=== PATIENT | female | born 1950 ===

== ENCOUNTER 2016-09-04 02:36 | Inpatient (IN) | payer MEDICARE, OTHER ==
[2016-09-04] MEDS ORDERED: ATORVASTATIN 80 MG TAB PO STA (02:42)
[2016-09-04 02:48] LABS: Glucose,Whole Blood 104 mg/dL (75-99)
[2016-09-04 02:52] LABS: Anisocytosis Moderate; CH 20.7; Hypochromasia Marked; Microcytosis Moderate
[2016-09-04 02:56] LABS: Basophils % (A) 0 %; CHCM 27.4; Eosinophils # (A) 0.2 k/uL (0-0.7); Eosinophils % (A) 3 %; HCT 22.8 % (34.0-46.0); HDW 3.02; Luc # (Auto) 0.23; Luc % (Auto) 3; Lymphocytes # (A) 1.1 k/uL (1.0-4.8); Lymphocytes % (A) 12 %; MCH 21.4 pg (25.0-35.0); MCHC 28.1 g/dL (31.0-37.0); MCV 76.1 fL (80.0-100.0); Mean Platelet Volume 7.8; Monocytes # (A) 0.7 k/uL (0-1.0); Monocytes % (A) 8 %; Neutrophils # (A) 6.7 k/uL (1.3-7.7); Neutrophils % (A) 75 %; RDW 20.6 % (11.5-15.5); WBC 8.9 k/uL (3.8-10.6); WBC (Perox) 9.11
[2016-09-04 02:58] LABS: HGB 6.4 gm/dL (11.4-16.0)
[2016-09-04 03:00] LABS: ALT 33 U/L (9-52); AST 20 U/L (14-36); Alkaline Phosphatase 40 U/L (38-126); Anion Gap 9 mmol/L; Blood Urea Nitrogen 8 mg/dL (7-17); Calcium 8.5 mg/dL (8.4-10.2); Carbon Dioxide 21 mmol/L (22-30); Chloride 109 mmol/L (98-107); Glucose 106 mg/dL (74-99); Non-African American GFR(MDRD) >60 (>60 ml/min/1.73 sqM); Sodium 139 mmol/L (137-145); Total Bilirubin 0.6 mg/dL (0.2-1.3); Total Protein 6.1 g/dL (6.3-8.2)
[2016-09-04] MEDS ORDERED: LIDOCAINE 2% INJ 20 MG/ML (20 ML MDV) ONE (03:00)
--- NOTE | 2016-09-04 03:04 | ED ---
Chest Pain HPI - General Chief Complaint: Chest Pain Stated Complaint: chest pain Time Seen by Provider: 09/04/16 02:36 Source: patient, EMS, RN notes reviewed Mode of arrival: EMS - History of Present Illness Initial Comments: This is a 66-year-old female who has a history of dysfunctional uterine bleeding and anemia who also is a Adventism and does not want any blood transfusions with the onset about one hour and 20 minutes prior to arrival of right-sided neck pain the radiated down into her shoulder and chest. She stated that it was approximately 6/10 severity associated with any nausea vomiting fevers chills or sweats. EMS was called she was noted to have some subtle ST elevation in leads 2 and aVL. She was brought here priority [address] elevation myocardial infarction. Patient did take 2 aspirins at home was given nitroglycerin by paramedics. The pain did improve down to about a 4 and then down to a 3. She has no prior history of heart disease or lung disease she is a former smoker who quit in the early 1980s. There is a family history of heart disease. MD Complaint: chest pain - Related Data Allergies Allergy/AdvReac Type Severity Reaction Status Date / Time metronidazole [From Flagyl] AdvReac Rash/Hives Verified 09/04/16 02:45 Review of Systems ROS Statement: Those systems with pertinent positive or pertinent negative responses have been documented in the HPI. ROS Other: All systems not noted in ROS Statement are negative. EKG Findings - EKG Results: EKG: interpreted by MIMI, sinus rhythm (Sinus rhythm with a rate of 111 IL interval 160 QRS duration 68 daily since QTC of 324/[address] segment in leads 1 and aVL) Past Medical History Additional Past Medical History / Comment(s): Anemia, sleep apnea History of Any Multi-Drug Resistant Organisms: None Reported Past Surgical History: No Surgical Hx Reported Past Psychological History: No Psychological Hx Reported Smoking Status: Former smoker Past Alcohol Use History: Occasional Past Drug Use History: None Reported General Exam - General Exam Comments Initial Comments: This is a well up well-nourished awake alert oriented 3 female General appearance: anxious Head exam: Present: atraumatic, normocephalic, normal inspection Eye exam: Present: normal appearance, PERRL, EOMI. Absent: scleral icterus, conjunctival injection, periorbital swelling ENT exam: Present: normal exam, mucous membranes moist Neck exam: Present: normal inspection. Absent: tenderness, meningismus, lymphadenopathy Respiratory exam: Present: normal lung sounds bilaterally. Absent: respiratory distress, wheezes, rales, rhonchi, stridor Cardiovascular Exam: Present: normal rhythm, tachycardia, normal heart sounds. Absent: systolic murmur, diastolic murmur, rubs, gallop, clicks GI/Abdominal exam: Present: soft, normal bowel sounds. Absent: distended, tenderness, guarding, rebound, rigid Extremities exam: Present: normal inspection, full ROM, normal capillary refill. Absent: tenderness, pedal edema, joint swelling, calf tenderness Back exam: Present: normal inspection Neurological exam: Present: alert, oriented X3, CN II-XII intact Psychiatric exam: Present: normal affect, normal mood Skin exam: Present: warm, dry, intact, normal color. 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 Reevaluation #2: 09/04/16 03:04 I did discuss the initial findings with Dr. Quan prior to the patient's arrival in the emergency department. This is also prior to discover that she was a Jehovah witness and had chronic anemia. Patient did state that she had a 6.1 hemoglobin done on a blood draw done yesterday. Chest Pain MDM - MDM [facility] was activated. Patient did have an x-ray done which showed no definite acute findings. Her latest pain scale was down to about a 1 or 2/10. Taken to the [facility]. Critical Care Time Critical Care Time: Yes Critical Care Time: 37 minutes of critical care time which included monitoring the EMS run and discussed with paramedics prior to arrival review the 12-lead EKG was transmitted. Discussed with paramedics after arrival. History and physical exam of the patient as well as lab orders and x-ray orders. Evaluation of the above. Reevaluation the patient to responsive therapy. Discussion with cardiology. Discussion later with the admitting service. Documentation of the above. Disposition Clinical Impression: ST elevation myocardial infarction (STEMI) Disposition: ADMITTED IP TO THIS HOSP Condition: Serious
[2016-09-04 03:07] LABS: Prothrombin Time 10.6 sec (9.0-12.0)
--- NOTE | 2016-09-04 03:12 | XR ---
EXAM: XR Chest, 1 View. CLINICAL HISTORY: Reason: Pain TECHNIQUE: Frontal view of the chest. COMPARISON: No relevant prior studies available. FINDINGS: Lungs: Unremarkable. No consolidation. Pleural space: Unremarkable. No pneumothorax. Heart: Unremarkable. No cardiomegaly. Mediastinum: Unremarkable. Bones/joints: Unremarkable. IMPRESSION: Normal chest x-ray.
[2016-09-04] MEDS ORDERED: NALOXONE 0.4 MG/ML 1 ML VIAL IV PRN (03:19)
[2016-09-04 03:21] LABS: Creatine Kinase MB 1.6 ng/mL (0.0-2.4)
[2016-09-04 03:25] LABS: Troponin I 0.255 ng/mL (0.000-0.034)
[2016-09-04] MEDS ORDERED: SODIUM CHLORIDE 0.9% 1,000 ML IV SCH (03:30)
[2016-09-04 03:39] LABS: Glucose,Whole Blood 114 mg/dL (75-99)
[2016-09-04] MEDS: MORPHINE SULFATE 2 MG/ML SYRINGE IVP PRN ×5 (04:48→22:26)
[2016-09-04 05:09] VITALS: BMI 35.5
[2016-09-04] MEDS ORDERED: Phosphorus Replacement Protoco 1 EACH MISC MISCELLANE PRN (05:31)
[2016-09-04] MEDS ORDERED: Potassium Replacement Protocol 1 EACH MISC MISCELLANE PRN (05:31)
[2016-09-04] MEDS ORDERED: Magnesium Replacement Protocol 1 EACH MISC MISCELLANE PRN (05:31)
--- NOTE | 2016-09-04 08:44 | CONS ---
DATE OF CONSULTATION: Mrs. Patterson is a 66-year-old female with no prior documented history of coronary artery disease, who presented with symptoms of chest discomfort. The discomfort was acute onset with mild dyspnea with radiation to the neck. Her EKG by EMS showed mild ST segment elevation in lead I and aVL. In view of that, she was brought into the cardiac catheterization laboratory for emergency cardiac catheterization. Patient has been having heavy vaginal bleeding and her hemoglobin on presentation was 6.4. She is a Muslim and refuses any blood product. At the time of my evaluation, her pain has resolved completely. She has no dyspnea. No dizziness. No palpitation. No syncope. She denies any history of coronary artery disease. She is not very active physically because of the anemia and the fatigue. She is worse supposed to be evaluated for possible hysterectomy. She has no history of PND, orthopnea, or peripheral edema. Her coronary risk factors are negative for smoking. She stopped in the . She is nondiabetic, nonhypertensive. REVIEW OF SYSTEMS: RESPIRATORY SYSTEM: She has no recent wheezing. No cough. No history of obstructive lung disease. GI SYSTEM: No recent GI bleeding. No peptic ulcer disease. SYSTEM: She has the heavy vaginal bleeding. NERVOUS SYSTEM: No stroke or seizure. PHYSICAL EXAMINATION: She is a 66-year-old female, alert, in no apparent distress. Heart rate in the one teens. Blood pressure 120/70. HEAD: Normocephalic. EYES: Sclerae anicteric. Conjunctivae are pale. NECK: Good upstroke. No bruit. No jugular venous distention. LUNGS: Clear to auscultation. HEART: Regular rate and rhythm. S1, S2, no S3, no rub. ABDOMEN: Soft, nontender, positive bowel sounds. No organomegaly. EXTREMITIES: No edema. Intact distal pulses. Lab data revealed EKG sinus mechanism, rate of [address] segment elevation and I and aVL with T wave inversion in 3 and aVF. Her hemoglobin is 6.4. IMPRESSION: 1. Probable acute ST segment elevation myocardial infarction in the lateral leads, could be diagonal branch territory. 2. Severe anemia with active vaginal bleeding. 3. Muslim, patient declined any blood product. RECOMMENDATION: In view of the severe anemia, the patient is not a candidate for any cardiac catheterization because of the risk of further bleeding and exacerbating factor especially that the risk of bleeding will be exacerbated by the anticoagulation. I have discussed those findings with the patient. Will treat her medically. Obtain echocardiogram with Doppler. Depending on her progress, further recommendation will be made. Thank you for this consult. We will follow with you.
[2016-09-04] MEDS: PANTOPRAZOLE 40 MG TABLET PO SCH (09:05)
[2016-09-04] MEDS: LISINOPRIL 2.5 MG TAB PO SCH ×2 (09:05→20:16)
[2016-09-04] MEDS: ATORVASTATIN 80 MG TAB PO SCH (09:06)
[2016-09-04] MEDS: ASPIRIN 81 MG CHEW PO SCH (09:06)
[2016-09-04] MEDS: METOPROLOL TARTRATE 25 MG TAB PO SCH ×2 (09:07→20:16)
[2016-09-04 09:34] LABS: Magnesium 1.9 mg/dL (1.6-2.3); Phosphorous 3.1 mg/dL (2.5-4.5)
[2016-09-04 09:59] LABS: Creatine Kinase MB 27.4 ng/mL (0.0-2.4); Troponin I 2.32 ng/mL (0.000-0.034)
[2016-09-04 10:02] LABS: Appearance,Urine Clear (Clear); Bilirubin,Urine Negative (Negative); Glucose,Urine (UA) Negative (Negative); Ketones,Urine Negative (Negative); Leukocyte Esterase,Urine Negative (Negative); Nitrite,Urine Negative (Negative); PH, Urine 5.5 (5.0-8.0); Protein,Urine Negative (Negative); Specific Gravity,Urine 1.005 (1.001-1.035); UA Billing (MACRO vs. MICRO) CHEM; Urobilinogen,Urine <2.0 mg/dL (<2.0)
[2016-09-04] MEDS ORDERED: SODIUM FERRIC GLUCONAT-SUCROSE 125 MG in SODIUM CHLORIDE 0.9% 100 ML IVPB ONE (11:00)
[2016-09-04] MEDS ORDERED: ALBUTEROL NEBULIZED 2.5 MG/3 ML INHALATION PRN (11:22)
[2016-09-04] MEDS ORDERED: LORATADINE 10 MG TAB PO PRN (11:22)
--- NOTE | 2016-09-04 11:36 | P.CNPUL ---
History of Present Illness Consult date: 09/04/16 Requesting physician: Dax Mcdowell Chief complaint: Chest pain History of present illness: This is a 66-year-old female with no previous documented history of coronary artery disease, presented to the ER with acute onset of chest discomfort and dyspnea with pain radiating to her neck. EKG by EMS showed mild ST segment elevation in lead 1 and aVL. Patient has been having heavy vaginal bleeding for a long time, and she is well aware that she has been anemic for a long time , patient is a Jehovah witness, and her tray packer felt all along that she is a high risk to undergo surgery with a very low hemoglobin and the patient would refuse to be transfused. Hence surgery was never done waiting mostly for higher level and her hemoglobin and hoping to correct her anemia before any surgical intervention. Hence hysterectomy was never done. Patient was seen by cardiology upon presentation, and because of high risk of further bleeding from the cardiac catheterization, patient was not felt to be a candidate for primary angioplasty in spite of the fact that the patient most likely had acute ST segment elevation myocardial infarction in the lateral leads. Patient continues to refuse any blood transfusion, hence multiple consultants were consulted regarding her condition including cardiology, gynecology, and hematology. I thoroughly explained the situation to the patient, and she is definitely against transfusion of any blood products. Patient is very well aware that her condition at this point without blood transfusion could be fatal. Review of Systems 14 point review of systems were obtained, please refer to pertinent positives and negatives in HPI Past Medical History Past Medical History: Sleep Apnea/CPAP/BIPAP Additional Past Medical History / Comment(s): Anemia, uterine bleeding from adenomyosis History of Any Multi-Drug Resistant Organisms: None Reported Past Surgical History: No Surgical Hx Reported Past Anesthesia/Blood Transfusion Reactions: Postoperative Nausea & Vomiting ( PONV) Past Psychological History: No Psychological Hx Reported Smoking Status: Former smoker Past Alcohol Use History: Occasional Past Drug Use History: None Reported - Past Family History Father Family Medical History: Myocardial Infarction ([place]) Medications and Allergies Home Medications Medication Instructions Recorded Confirmed Type Albuterol Inhaler [Ventolin Hfa 1 puff PO RT-Q4H PRN 09/04/16 09/04/16 History Inhaler] Estradiol [Estradiol] 1 mg PO HS 09/04/16 09/04/16 History Ferrous Sulfate [Iron (65 MG 325 mg PO TID 09/04/16 09/04/16 History Elemental)] Fluticasone Nasal [place] [Flonase 2 sprays EA NOSTRIL DAILY 09/04/16 09/04/16 History Nasal [place]] Loratadine [Claritin] 10 mg PO DAILY PRN 09/04/16 09/04/16 History Norethindrone 5 mg PO DAILY 09/04/16 09/04/16 History Allergies Allergy/AdvReac Type Severity Reaction Status Date / Time erythromycin base Allergy Nausea Verified 09/04/16 04:08 metronidazole [From Flagyl] AdvReac Rash/Hives Verified 09/04/16 02:45 Physical Exam Vitals: Vital Signs Temp Pulse Resp BP Pulse Ox 09/04/16 10:00 117 H 17 174/99 98 09/04/16 09:00 113 H 18 145/69 100 09/04/16 08:00 97.9 F 105 H 17 167/107 99 09/04/16 07:00 109 H 20 156/91 99 09/04/16 06:00 98.5 F 98 16 147/68 100 09/04/16 05:30 64 16 147/68 100 09/04/16 05:00 107 H 18 150/82 100 09/04/16 04:30 108 H 20 142/77 100 09/04/16 04:00 96.8 F L 105 H 16 135/73 100 09/04/16 03:39 105 H Intake and Output 09/03/16 09/04/16 09/04/16 22:59 06:59 14:59 Intake Total 225 300 Output Total 200 825 Balance 25 -525 Intake: Intake, IV Titration 225 300 Amount Sodium Chloride 0.9% 1, 225 300 000 ml @ 75 mls/hr IV . [id number] [facility] Rx#:[id number] Output: Urine 200 825 Other: Voiding Method Bedpan # Voids 1 Weight 96.8 kg Physical Exam: Revealed a 66-year-old female anxious in no form of respiratory distress, noted to be anxious and tachycardic. HEENT:[Neck is supple.] [No neck masses.] [No thyromegaly.] [No JVD.] Chest: [Clear throughout, no crackles, no rhonchi, no wheezes.] Cardiac Exam: [Normal S1 and S2, no S3 gallop, no murmur.] Abdomen: [Soft, nontender, no megaly, no rebound, no guarding, normal bowel sounds.] Extremities: [No clubbing, no edema, no cyanosis.] Neurological Exam: [No focal neurologic deficit.] Results - Laboratory Findings CBC and BMP: 09/04/16 02:45 09/04/16 02:45 PT/INR, D-dimer PT 10.6 sec (9.0-12.0) 09/04/16 02:45 INR 1.0 (<1.1) 09/04/16 02:45 Abnormal lab findings: Abnormal Labs 09/04/16 09/04/16 03:38 08:54 POC Glucose (mg/dL) 114 H Total Creatine Kinase 332 H CK-MB (CK-2) 27.4 H* Troponin I 2.320 H* - Diagnostic Findings Chest x-ray: image reviewed (Chest x-ray is relatively normal) Assessment and Plan Plan: Impression: [address] segment elevation myocardial infarction 2 chronic severe anemia secondary to chronic active vaginal bleeding. 3 patient is a Jehovah witness, refuses any blood products, no matter what. Patient was made aware of the severity of her condition, and still refuses any transfusion of any blood products. Recommendation: Continue conservative measures, however I have a feeling that this is going to be a very poor prognostic situation, I will seek the opinion of the spike machine feeder on the case. Cardiac galicia, patient cannot have cardiac catheterization, and she will be treated medically and no blood thinners could be given. Gynecology will also be consulted, however strongly doubt if any surgical intervention is an option at this point. Time with Patient: Greater than 30
--- NOTE | 2016-09-04 11:42 | ECHOF ---
Referral Reason:mi MEASUREMENTS -------- HEIGHT: 165.1 cm WEIGHT: 95.7 kg BP: 167/107 RVIDd: 3.1 cm (< 3.3) IVSd: 1.3 cm (0.6 - 1.1) LVIDd: 4.8 cm (3.9 - 5.3) LVPWd: 1.3 cm (0.6 - 1.1) IVSs: 1.7 cm LVIDs: 2.9 cm LVPWs: 1.7 cm LA Diam: 3.1 cm (2.7 - 3.8) LAESV Index (A-L): 41.09 ml/m Ao Diam: 3.6 cm (2.0 - 3.7) AV Cusp: 2.4 cm (1.5 - 2.6) MV EXCURSION: 16.269 mm (> 18.000) MV EF SLOPE: 99 mm/s (70 - 150) MV E Nicolas: 0.90 m/s MV DecT: 247 ms MV A Nicolas: 1.06 m/s MV E/A Ratio: 0.86 AV maxP.74 mmHg AV meanP.14 mmHg FINDINGS -------- Resting tachycardia (HR>100bpm). This was a technically difficult study with suboptimal views. The left ventricular size is normal. There is mild concentric left ventricular hypertrophy. Overall left ventricular systolic function is normal with, an EF between 60 - 65 %. The right ventricle is normal in size. LA is severely dilated >40 ml/m2 The right atrium is normal in size. 1.5mg of Definity was utilized for enhancement of images The aortic valve is trileaflet and appears structurally normal. Normal appearing mitral valve. No mitral regurgitation. Trace tricuspid regurgitation present. The pulmonic valve was not well visualized. The aortic root size is normal. Normal inferior vena cava with normal inspiratory collapse consistent with estimated right atrial pressure of 5 mmHg. There is no pericardial effusion. CONCLUSIONS -------- 1. Resting tachycardia (HR>100bpm). 2. Normal appearing mitral valve. 3. Trace tricuspid regurgitation present. 4. The pulmonic valve was not well visualized. 5. The aortic root size is normal. 6. Normal inferior vena cava with normal inspiratory collapse consistent with estimated right atrial pressure of 5 mmHg. 7. There is no pericardial effusion. 8. This was a technically difficult study with suboptimal views. 9. The left ventricular size is normal. 10. There is mild concentric left ventricular hypertrophy. 11. Overall left ventricular systolic function is normal with, an EF between 60 - 65 %. 12. The right ventricle is normal in size. 13. LA is severely dilated >40 ml/m2 14. 1.5mg of Definity was utilized for enhancement of images 15. The aortic valve is trileaflet and appears structurally normal. [employer] PAYROLL CONSULTANT: Cherri Hutchinson RDCS
--- NOTE | 2016-09-04 11:47 | P.HPIM ---
History of Present Illness H&P Date: 09/04/16 Chief Complaint: Chest pain This is a 66-year-old female, patient of Dr. Mccormick. She has a known past medical history of being a former smoker as well as dysfunctional uterine bleeding from fibroids with chronic anemia. Patient is a Jehovah witness and does not want to have any blood products. Patient has been dealing with this anemia and uterine bleeding since 1990. She is followed by [facility] into the were planning on hysterectomy when her hemoglobin is stable. Patient is on iron supplements at home. Patient presents to the emergency room with complaints of chest pain. Patient reports the pain was in the back between her shoulder blades goes up into the right side of her neck jaw area and down both arms. She does have some shortness of breath with the symptoms. Symptoms did start yesterday evening. She called EMS. They noted EKG changes. She was brought into the emergency room. Patient did take 2 aspirins and was also given nitroglycerin by paramedics. She did have some improvement in her pain. Patient has no previous cardiac history. She was brought into the emergency room her first troponin was 0.255 second troponin 2.320. EKG had shown ST elevation in lead 1 and aVL. Patient was evaluated by cardiology for a heart catheterization. however, due to patient's anemia with a hemoglobin of 6.4 and active bleeding is too high risk to proceed with procedure. Patient has been admitted to the ICU. Pulmonary service, cardiology and hematology has been consulted. Patient is currently having vaginal bleeding with blood clots. Review of Systems Please refer to HPI otherwise unremarkable Past Medical History Past Medical History: Sleep Apnea/CPAP/BIPAP Additional Past Medical History / Comment(s): Anemia, uterine bleeding from adenomyosis History of Any Multi-Drug Resistant Organisms: None Reported Past Surgical History: No Surgical Hx Reported Past Anesthesia/Blood Transfusion Reactions: Postoperative Nausea & Vomiting ( PONV) Past Psychological History: No Psychological Hx Reported Smoking Status: Former smoker Past Alcohol Use History: Occasional Past Drug Use History: None Reported - Past Family History Father Family Medical History: Myocardial Infarction ([place]) Medications and Allergies Home Medications Medication Instructions Recorded Confirmed Type Albuterol Inhaler [Ventolin Hfa 1 puff PO RT-Q4H PRN 09/04/16 09/04/16 History Inhaler] Estradiol [Estradiol] 1 mg PO HS 09/04/16 09/04/16 History Ferrous Sulfate [Iron (65 MG 325 mg PO TID 09/04/16 09/04/16 History Elemental)] Fluticasone Nasal [place] [Flonase 2 sprays EA NOSTRIL DAILY 09/04/16 09/04/16 History Nasal [place]] Loratadine [Claritin] 10 mg PO DAILY PRN 09/04/16 09/04/16 History Norethindrone 5 mg PO DAILY 09/04/16 09/04/16 History Allergies Allergy/AdvReac Type Severity Reaction Status Date / Time erythromycin base Allergy Nausea Verified 09/04/16 04:08 metronidazole [From Flagyl] AdvReac Rash/Hives Verified 09/04/16 02:45 Physical Exam Vitals: Vital Signs Temp Pulse Resp BP Pulse Ox 09/04/16 10:00 117 H 17 174/99 98 09/04/16 09:00 113 H 18 145/69 100 09/04/16 08:00 97.9 F 105 H 17 167/107 99 09/04/16 07:00 109 H 20 156/91 99 09/04/16 06:00 98.5 F 98 16 147/68 100 09/04/16 05:30 64 16 147/68 100 09/04/16 05:00 107 H 18 150/82 100 09/04/16 04:30 108 H 20 142/77 100 09/04/16 04:00 96.8 F L 105 H 16 135/73 100 09/04/16 03:39 105 H Intake and Output 09/03/16 09/04/16 09/04/16 22:59 06:59 14:59 Intake Total 225 300 Output Total 200 825 Balance 25 -525 Intake: Intake, IV Titration 225 300 Amount Sodium Chloride 0.9% 1, 225 300 000 ml @ 75 mls/hr IV . [id number] [facility] Rx#:[id number] Output: Urine 200 825 Other: Voiding Method Bedpan # Voids 1 Weight 96.8 kg Head normocephalic Neck supple Lungs clear to auscultation bilaterally no wheezing or crackles Heart regular rate and rhythm S1-S2, no rub or gallop Abdomen is soft nontender nondistended positive bowel sounds no hepatosplenomegaly Extremities no edema Neuro alert and orientated to 3 Results CBC & Chem 7: 09/04/16 02:45 09/04/16 02:45 Labs: Abnormal Lab Results - Last 24 Hours (Table) 09/04/16 09/04/16 Range/Units 03:38 08:54 POC Glucose (mg/dL) 114 H (75-99) mg/dL Total Creatine Kinase 332 H (30-135) U/L CK-MB (CK-2) 27.4 H* (0.0-2.4) ng/mL Troponin I 2.320 H* (0.000-0.034) ng/mL Thrombosis Risk Factor Assmnt - Choose All That Apply Any of the Below Risk Factors Present?: Yes Each Factor Represents 1 point: Acute [place] Other Risk Factors: Yes Each Risk Factor Represents 2 Points: Age 61-74 years Other congenital or acquired thrombophilia - If yes, enter type in comment: No Thrombosis Risk Factor Assessment Total Risk Factor Score: 3 Thrombosis Risk Factor Assessment Level: Moderate Risk Assessment and Plan Plan: 1. Acute ST elevated myocardial infarction: Patient not a candidate for heart catheterization due to her severe anemia. Cardiology is following and currently recommending medical management. They have added Lipitor lisinopril and metoprolol. Echo pending 2. Dysfunctional uterine bleeding due to uterine fibroids. Patient is having active vaginal bleeding. She is supposed to have a hysterectomy when her hemoglobin has stabilized 3. Acute on chronic blood loss anemia due to uterine bleeding. Patient refuses any blood products. She is a Jehovah witness. Hemoglobin 6.4 continue to monitor. Patient will be giving IV Iron. Hematology has been consulted. 4. Former smoker GI prophylaxis Protonix and DVT prophylaxis SCDs Time with Patient: Greater than 30 (Greater than 50% of the total time spent in counseling and coordination of care.I performed an examination of the patient and discussed their management with the physician Photo Optics Technician. I have reviewed the Physician Photo Optics Technician's notes and agree with the documented findings and plan of care)
[2016-09-04] MEDS: SODIUM CHLORIDE 0.9% 1,000 ML IV SCH ×2 (13:20→21:22)
--- NOTE | 2016-09-04 14:48 | US ---
EXAMINATION TYPE: US transvaginal DATE OF EXAM: 09/04/2016 2:30 PM COMPARISON: NONE CLINICAL HISTORY: Uterine bleeding. Bleeding with large clots TECHNIQUE: Transvaginal (TV) transabdominal scanning also performed for overview of the uterus. Date of LMP: 06/2001 EXAM MEASUREMENTS: Uterus: 14.4 x 8.8 x 7.3 cm Endometrial Stripe: 1.8 cm Right Ovary: unable to visualize Left Ovary: unable to visualize 1. Uterus: Anteverted Enlarged, heterogeneous in appearance with at least 2 fibroids noted, larges t = 6.2 x 6.0 x 6.0cm. Heterogeneous cervix, Nabothian cysts noted 2. Endometrium: appears thickened, difficult to evaluate due to heterogeneous uterine tissue 3. Right Ovary: unable to visualize 4. Left Ovary: unable to visualize 5. Bilateral Adnexa: appears wnl 6. Posterior cul-de-sac: small amount of free fluid IMPRESSION: Possible fibroid uterus, difficult to exclude cervical mass, abnormal endometrial thicken ing consider biopsy
[2016-09-04] MEDS ORDERED: DARBEPOETIN ALFA 100MCG/0.5ML SYRINGE SQ SCH (15:00)
[2016-09-04 15:21] LABS: Anisocytosis Moderate; Basophils % (A) 0 %; CH 20.6; CHCM 27.7; Eosinophils # (A) 0.2 k/uL (0-0.7); Eosinophils % (A) 2 %; HDW 3.13; Hypochromasia Marked; Luc # (Auto) 0.11; Luc % (Auto) 1; Lymphocytes % (A) 9 %; MCH 21.5 pg (25.0-35.0); MCHC 28.6 g/dL (31.0-37.0); MCV 75.1 fL (80.0-100.0); Mean Platelet Volume 7.5; Microcytosis Moderate; Monocytes # (A) 0.5 k/uL (0-1.0); Monocytes % (A) 4 %; Neutrophils # (A) 8.9 k/uL (1.3-7.7); Neutrophils % (A) 83 %; RBC 3.06 m/uL (3.80-5.40); RDW 20.6 % (11.5-15.5); WBC 10.7 k/uL (3.8-10.6); WBC (Perox) 11.13
[2016-09-04 15:22] LABS: HGB 6.6 gm/dL (11.4-16.0)
[2016-09-04] MEDS: FERROUS SULFATE 325 MG TAB PO SCH (15:28)
[2016-09-04 15:30] LABS: INR 1.1 (<1.1); Partial Thromboplastin Time 25.4 sec (22.0-30.0); Prothrombin Time 11.1 sec (9.0-12.0)
[2016-09-04 15:32] LABS: Anion Gap 8 mmol/L; Blood Urea Nitrogen 4 mg/dL (7-17); Calcium 8.3 mg/dL (8.4-10.2); Carbon Dioxide 21 mmol/L (22-30); Chloride 109 mmol/L (98-107); Glucose 116 mg/dL (74-99); Non-African American GFR(MDRD) >60 (>60 ml/min/1.73 sqM); Potassium 3.8 mmol/L (3.5-5.1); Sodium 138 mmol/L (137-145)
[2016-09-04] MEDS ORDERED: POTASSIUM CHLORIDE 20 MEQ, LIDOCAINE 2% INJ 20 MG in SODIUM CHLORIDE 0.9% 100 ML IVPB ONE (15:39)
[2016-09-04 15:40] LABS: Polychromasia Present
[2016-09-04] MEDS: MAGNESIUM SULFATE-D5W PMX 1 GM in DEXTROSE/WATER 1 100ML.BAG IVPB SCH ×2 (16:24→17:29)
[2016-09-04] MEDS ORDERED: CALCIUM CARBONATE 500 MG CHEWABLE PO PRN (16:47)
--- NOTE | 2016-09-04 17:28 | P.OBCN ---
History of Present Illness Consult date: 09/04/16 Reason for consult: other (Vaginal bleeding) Chief complaint: Chest pain and vaginal bleeding History of present illness: This is a 66-year-old 5 para 3023 woman who presented to the emergency room with worsening chest pain and shortness of breath. She was found at that time to have an acutely abnormal EKG. She was taken to the cardiac catheterization lab with plans for intervention however hemoglobin was found to be extremely low at 6.4. The procedure was therefore canceled and she was admitted to the ICU. The patient reports a long-standing history of vaginal bleeding. She recently underwent an evaluation including endometrial biopsy on 09/02/2016 at [facility]. She reports her bleeding is very heavy with passage of large clots and this is been occurring for the past several years. She will have 3 or 4 days of painful heavy bleeding with large clots followed by 1-6 weeks of watery bloody discharge before the heavy bleeding begins again. She had an episode of heavier bleeding on August 26- and starting again yesterday. She reports being diagnosed with a fibroid uterus and has been recommended to have a hysterectomy. She is a Jain and refuses all blood products. Upon my evaluation she is complaining of feeling short of breath and a burning and pressure in her chest. She is feeling clammy and nauseated. Pelvic ultrasound shows an enlarged and heterogeneous uterus measuring 14.4 x 8.8 x 7.3 cm with a thickened endometrial stripe of 1.8 cm. There are 2 fibroids the largest of which measures 6 x 6 cm. Neither ovary are visualized. There is some free fluid in the cul-de-sac. The pathology report from recent endometrial sampling at [facility] is still pending at this time. Review of Systems Constitutional: Reports fatigue, Reports weakness Cardiovascular: Reports chest pain, Reports shortness of breath Respiratory: Reports dyspnea, Denies cough Gastrointestinal: Reports nausea, Denies abdominal pain, Denies BRBPR Genitourinary: Reports abnormal vaginal bleeding Musculoskeletal: Reports arm numbness/tingling, Reports neck pain Neurological: Denies headaches Past Medical History Past Medical History: Sleep Apnea/CPAP/BIPAP Additional Past Medical History / Comment(s): Anemia, uterine bleeding from adenomyosis History of Any Multi-Drug Resistant Organisms: None Reported Additional Past Surgical History / Comment(s): Hysteroscopy and D&C 10/2015 Past Anesthesia/Blood Transfusion Reactions: Postoperative Nausea & Vomiting ( PONV) Past Psychological History: No Psychological Hx Reported Additional Psychological History / Comment(s): Jain, refuses all blood products Smoking Status: Former smoker Past Alcohol Use History: Occasional Past Drug Use History: None Reported - Past Family History Father Family Medical History: Myocardial Infarction (VT) Medications and Allergies Home Medications Medication Instructions Recorded Confirmed Type Albuterol Inhaler [Ventolin Hfa 1 puff PO RT-Q4H PRN 09/04/16 09/04/16 History Inhaler] Estradiol [Estradiol] 1 mg PO HS 09/04/16 09/04/16 History Ferrous Sulfate [Iron (65 MG 325 mg PO TID 09/04/16 09/04/16 History Elemental)] Fluticasone Nasal [place] [Flonase 2 sprays EA NOSTRIL DAILY 09/04/16 09/04/16 History Nasal [place]] Loratadine [Claritin] 10 mg PO DAILY PRN 09/04/16 09/04/16 History Norethindrone 5 mg PO DAILY 09/04/16 09/04/16 History Allergies Allergy/AdvReac Type Severity Reaction Status Date / Time erythromycin base Allergy Nausea Verified 09/04/16 04:08 metronidazole [From Flagyl] AdvReac Rash/Hives Verified 09/04/16 02:45 Exam - Vital Signs Vital signs: Vital Signs Temp Pulse Resp BP Pulse Ox 09/04/16 17:00 100 16 151/83 98 09/04/16 16:00 98.2 F 95 19 157/81 100 09/04/16 15:00 97 18 152/85 99 09/04/16 14:00 97 13 156/93 100 09/04/16 13:00 101 H 21 151/86 96 09/04/16 12:00 97.8 F 98 18 156/92 98 09/04/16 11:00 96 18 162/90 98 09/04/16 10:00 117 H 17 174/99 98 09/04/16 09:00 113 H 18 145/69 100 09/04/16 08:00 97.9 F 105 H 17 167/107 99 09/04/16 07:00 109 H 20 156/91 99 09/04/16 06:00 98.5 F 98 16 147/68 100 09/04/16 05:30 64 16 147/68 100 09/04/16 05:00 107 H 18 150/82 100 09/04/16 04:30 108 H 20 142/77 100 09/04/16 04:00 96.8 F L 105 H 16 135/73 100 09/04/16 03:39 105 H Intake and Output 09/04/16 09/04/16 09/04/16 06:59 14:59 22:59 Intake Total 225 750 300 Output Total 200 1475 425 Balance 25 -725 -125 Intake: IV 100 Sodium Ferric Gluconat- 100 Sucrose 125 mg In Sodium Chloride 0.9% 100 ml @ 100 mls/hr IVPB ONCE ONE Rx#:[id number] Intake, IV Titration 225 650 300 Amount Sodium Chloride 0.9% 1, 200 300 000 ml @ 100 mls/hr IV . Q10H [facility] Rx#:[id number] Sodium Chloride 0.9% 1, 225 450 000 ml @ 75 mls/hr IV . [id number] [facility] Rx#:[id number] Output: Urine 200 1475 425 Other: Voiding Method Bedpan Indwelling Catheter Indwelling Catheter # Voids 1 Weight 96.8 kg This is a visibly uncomfortable, diaphoretic female. Targeted physical exam was performed. The heart is regular however mildly tachycardic upon auscultation. The lungs are clear to auscultation bilaterally. The abdomen is obese, soft and nontender. The extremities are free of any obvious asymmetry or edema. On bimanual pelvic examination there is dark clot in the vaginal canal. The exam is limited somewhat secondary to patient's body habitus however the uterus feels enlarged and filling the posterior cul-de-sac. Approximately 12-14 weeks size. This is mildly tender. The adnexa are not palpable separate from the uterus. Results Result Diagrams: 09/04/16 14:58 09/04/16 14:58 Abnormal Lab Results - Last 24 Hours (Table) 09/04/16 09/04/16 09/04/16 Range/Units 03:38 08:54 14:58 WBC (3.8-10.6) k/uL RBC (3.80-5.40) m/uL Hgb (11.4-16.0) gm/dL Hct (34.0-46.0) % MCV (80.0-100.0) fL MCH (25.0-35.0) pg MCHC (31.0-37.0) g/dL RDW (11.5-15.5) % Neutrophils # (1.3-7.7) k/uL Chloride (98-107) mmol/L Carbon Dioxide (22-30) mmol/L BUN (7-17) mg/dL Glucose (74-99) mg/dL POC Glucose (mg/dL) 114 H (75-99) mg/dL Calcium (8.4-10.2) mg/dL Total Creatine Kinase 332 H (30-135) U/L CK-MB (CK-2) 27.4 H* (0.0-2.4) ng/mL Troponin I 2.320 H* 7.130 H* (0.000-0.034) ng/mL 09/04/16 09/04/16 Range/Units 14:58 14:58 WBC 10.7 H (3.8-10.6) k/uL RBC 3.06 L (3.80-5.40) m/uL Hgb 6.6 L* (11.4-16.0) gm/dL Hct 23.0 L (34.0-46.0) % MCV 75.1 L (80.0-100.0) fL MCH 21.5 L (25.0-35.0) pg MCHC 28.6 L (31.0-37.0) g/dL RDW 20.6 H (11.5-15.5) % Neutrophils # 8.9 H (1.3-7.7) k/uL Chloride 109 H (98-107) mmol/L Carbon Dioxide 21 L (22-30) mmol/L BUN 4 L (7-17) mg/dL Glucose 116 H (74-99) mg/dL POC Glucose (mg/dL) (75-99) mg/dL Calcium 8.3 L (8.4-10.2) mg/dL Total Creatine Kinase (30-135) U/L CK-MB (CK-2) (0.0-2.4) ng/mL Troponin I (0.000-0.034) ng/mL Microbiology - Last 24 Hours (Table) 09/04/16 08:35 Urine Culture - Preliminary Urine,Catheterized US - abdomen: report reviewed, image reviewed Assessment and Plan (1) Enlarged uterus Status: Acute (2) ST elevation myocardial infarction (STEMI) Status: Acute (3) Postmenopausal bleeding Narrative/Plan: This is a 66 year old 5 para 3 woman with postmenopausal bleeding, an enlarged uterus and thickened endometrium. She is having active vaginal bleeding and likely has acute on chronic blood loss anemia as a contributing factor to her VT. She recently had endometrial sampling however the pathology report is pending. Based on imaging and clinical history she likely has endometrial hyperplasia or malignancy of some type. Transfusion of packed red blood cells in order to stabilize her cardiac situation enough to surgically address her vaginal bleeding is recommended. Dilatation and curettage would likely decrease her bleeding in the immediacy although ultimately she would require hysterectomy pending pathology results. Unfortunately she, after extensive counseling, is refusing all blood products. She is currently very symptomatic from a cardiac standpoint and her troponin levels are increasing. I counseled that this situation may improve fatal if we do not intervene. She is again refusing blood products at this time. The case was discussed with both Dr. Huitron and Dr. Willis. Status: Acute (4) Chest pain Status: Acute (5) Anemia Status: Acute
[2016-09-04] MEDS: ESTRADIOL 1 MG TAB PO SCH (21:22)
[2016-09-04] MEDS: NORETHINDRONE 5 MG PO SCH (22:04)
[2016-09-05 04:55] LABS: Anisocytosis Moderate; Basophils # (A) 0.1 k/uL (0-0.2); Basophils % (A) 1 %; CH 20.5; CHCM 26.3; Eosinophils # (A) 0.2 k/uL (0-0.7); Eosinophils % (A) 2 %; HCT 23.8 % (34.0-46.0); HDW 2.92; HGB 6.4 gm/dL (11.4-16.0); Hypochromasia Marked; Luc # (Auto) 0.29; Luc % (Auto) 3; Lymphocytes # (A) 1.2 k/uL (1.0-4.8); Lymphocytes % (A) 12 %; MCH 21.2 pg (25.0-35.0); MCV 78.7 fL (80.0-100.0); Mean Platelet Volume 8.5; Microcytosis Moderate; Monocytes # (A) 0.8 k/uL (0-1.0); Monocytes % (A) 8 %; Neutrophils # (A) 7.2 k/uL (1.3-7.7); Neutrophils % (A) 74 %; RBC 3.02 m/uL (3.80-5.40); RDW 20.3 % (11.5-15.5); WBC 9.8 k/uL (3.8-10.6); WBC (Perox) 10.24
[2016-09-05 04:56] LABS: Anion Gap 7 mmol/L; Blood Urea Nitrogen 4 mg/dL (7-17); Carbon Dioxide 20 mmol/L (22-30); Chloride 109 mmol/L (98-107); Glucose 94 mg/dL (74-99); Magnesium 2.3 mg/dL (1.6-2.3); Non-African American GFR(MDRD) >60 (>60 ml/min/1.73 sqM); Phosphorous 3.2 mg/dL (2.5-4.5); Potassium 4.5 mmol/L (3.5-5.1); Sodium 136 mmol/L (137-145)
[2016-09-05] MEDS: PANTOPRAZOLE 40 MG TABLET PO SCH (08:07)
[2016-09-05] MEDS: METOPROLOL TARTRATE 25 MG TAB PO SCH ×2 (08:07→20:09)
[2016-09-05] MEDS: ATORVASTATIN 80 MG TAB PO SCH (08:07)
[2016-09-05] MEDS: ASPIRIN 81 MG CHEW PO SCH (08:07)
[2016-09-05] MEDS: FERROUS SULFATE 325 MG TAB PO SCH ×3 (08:07→16:46)
[2016-09-05] MEDS: SODIUM CHLORIDE 0.9% 1,000 ML IV SCH (08:08)
[2016-09-05] MEDS: LISINOPRIL 2.5 MG TAB PO SCH ×2 (08:08→20:09)
[2016-09-05] MEDS: FLUTICASONE 50MCG/SPRAY NASAL 16GM EA NOSTRIL SCH (08:08)
[2016-09-05] MEDS ORDERED: NORETHINDRONE 5 MG TAB PO SCH (09:00)
[2016-09-05] MEDS: MORPHINE SULFATE 2 MG/ML SYRINGE IVP PRN (09:52)
--- NOTE | 2016-09-05 11:51 | P.PN ---
Subjective Principal diagnosis: Vaginal bleeding and chest pain She reports ongoing episodes of burning in her chest. She currently denies feeling short of breath or chest pain. Her vaginal bleeding continues but she has not had any large clots since yesterday morning. Hemoglobin stable at 6.4. Objective - Vital Signs Vital signs: Vital Signs Temp 98.7 F 09/05/16 08:00 Pulse 72 09/05/16 11:00 Resp 17 09/05/16 11:00 BP 112/70 09/05/16 11:00 Pulse Ox 97 09/05/16 11:00 Intake & Output 09/04/16 09/05/16 09/05/16 18:59 06:59 18:59 Intake Total 1450 1820 500 Output Total 2050 1600 675 Balance -600 220 -175 Weight 96 kg Intake: IV 100 Sodium Ferric Gluconat- 100 Sucrose 125 mg In Sodium Chloride 0.9% 100 ml @ 100 mls/hr IVPB ONCE ONE Rx#:[id number] Intake, IV Titration 1350 1100 500 Amount Magnesium Sulfate-D5w Pmx 200 1 gm In Dextrose/Water 1 100ml.bag @ 100 mls/hr IVPB Q1H [facility] Rx#: [id number] Potassium Chloride 20 meq 100 Lidocaine 2% Inj 20 mg In Sodium Chloride 0.9% 100 ml @ 55.5 mls/hr IVPB ONCE ONE Rx#:[id number] Sodium Chloride 0.9% 1, 600 1100 500 000 ml @ 100 mls/hr IV . Q10H [facility] Rx#:[id number] Sodium Chloride 0.9% 1, 450 000 ml @ 75 mls/hr IV . [id number] [facility] Rx#:[id number] Oral 720 Output: Urine 0 1600 675 Other: Voiding Method Indwelling Catheter Indwelling Catheter Indwelling Catheter - Exam She appears to be resting comfortably in the bed in no acute distress. Multiple family members are in the room at the time of our discussion therefore physical exam not performed. - Labs CBC & Chem 7: 09/05/16 04:11 09/05/16 04:11 Labs: Abnormal Lab Results - Last 24 Hours (Table) 09/04/16 09/04/16 09/04/16 Range/Units 14:58 14:58 14:58 WBC 10.7 H (3.8-10.6) k/uL RBC 3.06 L (3.80-5.40) m/uL Hgb 6.6 L* (11.4-16.0) gm/dL Hct 23.0 L (34.0-46.0) % MCV 75.1 L (80.0-100.0) fL MCH 21.5 L (25.0-35.0) pg MCHC 28.6 L (31.0-37.0) g/dL RDW 20.6 H (11.5-15.5) % Neutrophils # 8.9 H (1.3-7.7) k/uL Sodium (137-145) mmol/L Chloride 109 H (98-107) mmol/L Carbon Dioxide 21 L (22-30) mmol/L BUN 4 L (7-17) mg/dL Glucose 116 H (74-99) mg/dL Calcium 8.3 L (8.4-10.2) mg/dL Troponin I 7.130 H* (0.000-0.034) ng/mL 09/05/16 09/05/16 Range/Units 04:11 04:11 WBC (3.8-10.6) k/uL RBC 3.02 L (3.80-5.40) m/uL Hgb 6.4 L* (11.4-16.0) gm/dL Hct 23.8 L (34.0-46.0) % MCV 78.7 L (80.0-100.0) fL MCH 21.2 L (25.0-35.0) pg MCHC 27.0 L (31.0-37.0) g/dL RDW 20.3 H (11.5-15.5) % Neutrophils # (1.3-7.7) k/uL Sodium 136 L (137-145) mmol/L Chloride 109 H (98-107) mmol/L Carbon Dioxide 20 L (22-30) mmol/L BUN 4 L (7-17) mg/dL Glucose (74-99) mg/dL Calcium 8.0 L (8.4-10.2) mg/dL Troponin I (0.000-0.034) ng/mL Microbiology - Last 24 Hours (Table) 09/04/16 08:35 Urine Culture - Final Urine,Catheterized Assessment and Plan (1) Enlarged uterus Status: Acute (2) ST elevation myocardial infarction (STEMI) Narrative/Plan: Ongoing episodes of chest pain at rest. Status: Acute (3) Postmenopausal bleeding Narrative/Plan: Continued postmenopausal bleeding with ultrasound showing thickened endometrium and enlarged fibroid uterus. D&C to temporize the bleeding can be performed when she is stable from a cardiac standpoint. Status: Acute (4) Chest pain Status: Acute (5) Anemia Narrative/Plan: The patient is a [employer]. She declines blood products. She has signed a DO NOT RESUSCITATE paperwork. I believe she understands the gravity of the situation. Status: Acute
--- NOTE | 2016-09-05 12:03 | P.PN ---
Subjective Principal diagnosis: Acute ST elevation myocardial infarction and massive vaginal bleeding This is a 66-year-old female with no previous documented history of coronary artery disease, presented to the ER with acute onset of chest discomfort and dyspnea with pain radiating to her neck. EKG by EMS showed mild ST segment elevation in lead 1 and aVL. Patient has been having heavy vaginal bleeding for a long time, and she is well aware that she has been anemic for a long time , patient is a Jehovah witness, and her mink rancher felt all along that she is a high risk to undergo surgery with a very low hemoglobin and the patient would refuse to be transfused. Hence surgery was never done waiting mostly for higher level and her hemoglobin and hoping to correct her anemia before any surgical intervention. Hence hysterectomy was never done. Patient was seen by cardiology upon presentation, and because of high risk of further bleeding from the cardiac catheterization, patient was not felt to be a candidate for primary angioplasty in spite of the fact that the patient most likely had acute ST segment elevation myocardial infarction in the lateral leads. Patient continues to refuse any blood transfusion, hence multiple consultants were consulted regarding her condition including cardiology, gynecology, and hematology. I thoroughly explained the situation to the patient, and she is definitely against transfusion of any blood products. Patient is very well aware that her condition at this point without blood transfusion could be fatal. Patient was reevaluated today on 09/05/2016, she is basically about the same, her CODE STATUS was changed to DO NOT RESUSCITATE, patient is very well aware today that her condition is quite critical unless a blood transfusion could be given. Patient continues to insist against any blood transfusion because of her face. And that will be respected. Hemoglobin is a bit down further today to 6.4. Her electrolytes are normal renal profile is normal. Patient is receiving Procrit and iron infusions. Objective - Vital Signs Vital signs: Vital Signs Temp 98.7 F 09/05/16 08:00 Pulse 72 09/05/16 11:00 Resp 17 09/05/16 11:00 BP 112/70 09/05/16 11:00 Pulse Ox 97 09/05/16 11:00 Intake & Output 09/04/16 09/05/16 09/05/16 18:59 06:59 18:59 Intake Total 1450 1820 500 Output Total 2050 1600 675 Balance -600 220 -175 Weight 96 kg Intake: IV 100 Sodium Ferric Gluconat- 100 Sucrose 125 mg In Sodium Chloride 0.9% 100 ml @ 100 mls/hr IVPB ONCE ONE Rx#:[id number] Intake, IV Titration 1350 1100 500 Amount Magnesium Sulfate-D5w Pmx 200 1 gm In Dextrose/Water 1 100ml.bag @ 100 mls/hr IVPB Q1H [facility] Rx#: [id number] Potassium Chloride 20 meq 100 Lidocaine 2% Inj 20 mg In Sodium Chloride 0.9% 100 ml @ 55.5 mls/hr IVPB ONCE ONE Rx#:[id number] Sodium Chloride 0.9% 1, 600 1100 500 000 ml @ 100 mls/hr IV . Q10H [facility] Rx#:[id number] Sodium Chloride 0.9% 1, 450 000 ml @ 75 mls/hr IV . [id number] [facility] Rx#:[id number] Oral 720 Output: Urine 2050 1600 675 Other: Voiding Method Indwelling Catheter Indwelling Catheter Indwelling Catheter - Exam Physical Exam: Revealed a 66-year-old female anxious in no form of respiratory distress, noted to be anxious and tachycardic. HEENT:[Neck is supple.] [No neck masses.] [No thyromegaly.] [No JVD.] Chest: [Clear throughout, no crackles, no rhonchi, no wheezes.] Cardiac Exam: [Normal S1 and S2, no S3 gallop, no murmur.] Abdomen: [Soft, nontender, no megaly, no rebound, no guarding, normal bowel sounds.] Extremities: [No clubbing, no edema, no cyanosis.] Neurological Exam: [No focal neurologic deficit.] - Labs CBC & Chem 7: 09/05/16 04:11 09/05/16 04:11 Labs: Abnormal Lab Results - Last 24 Hours (Table) 09/04/16 09/04/16 09/04/16 Range/Units 14:58 14:58 14:58 WBC 10.7 H (3.8-10.6) k/uL RBC 3.06 L (3.80-5.40) m/uL Hgb 6.6 L* (11.4-16.0) gm/dL Hct 23.0 L (34.0-46.0) % MCV 75.1 L (80.0-100.0) fL MCH 21.5 L (25.0-35.0) pg MCHC 28.6 L (31.0-37.0) g/dL RDW 20.6 H (11.5-15.5) % Neutrophils # 8.9 H (1.3-7.7) k/uL Sodium (137-145) mmol/L Chloride 109 H (98-107) mmol/L Carbon Dioxide 21 L (22-30) mmol/L BUN 4 L (7-17) mg/dL Glucose 116 H (74-99) mg/dL Calcium 8.3 L (8.4-10.2) mg/dL Troponin I 7.130 H* (0.000-0.034) ng/mL 09/05/16 09/05/16 Range/Units 04:11 04:11 WBC (3.8-10.6) k/uL RBC 3.02 L (3.80-5.40) m/uL Hgb 6.4 L* (11.4-16.0) gm/dL Hct 23.8 L (34.0-46.0) % MCV 78.7 L (80.0-100.0) fL MCH 21.2 L (25.0-35.0) pg MCHC 27.0 L (31.0-37.0) g/dL RDW 20.3 H (11.5-15.5) % Neutrophils # (1.3-7.7) k/uL Sodium 136 L (137-145) mmol/L Chloride 109 H (98-107) mmol/L Carbon Dioxide 20 L (22-30) mmol/L BUN 4 L (7-17) mg/dL Glucose (74-99) mg/dL Calcium 8.0 L (8.4-10.2) mg/dL Troponin I (0.000-0.034) ng/mL Microbiology - Last 24 Hours (Table) 09/04/16 08:35 Urine Culture - Final Urine,Catheterized Assessment and Plan Plan: Impression: [address] segment elevation myocardial infarction 2 chronic severe anemia secondary to chronic active vaginal bleeding. 3 patient is a Jehovah witness, refuses any blood products, no matter what. Patient was made aware of the severity of her condition, and still refuses any transfusion of any blood products. Recommendation: Continue present treatment plan, had a long discussion with the patient again regarding her bleeding and her poor prognosis patient continues to insist against having any blood products. Prognosis is poor we'll continue to follow. Time with Patient: Less than 30
--- NOTE | 2016-09-05 13:31 | P.PN ---
Subjective Patient is doing well today. No events overnight. Objective - Vital Signs Vital signs: Vital Signs Temp 98.0 F 09/05/16 12:00 Pulse 76 09/05/16 12:00 Resp 19 09/05/16 12:00 BP 107/60 09/05/16 12:00 Pulse Ox 100 09/05/16 12:00 Intake & Output 09/04/16 09/05/16 09/05/16 18:59 06:59 18:59 Intake Total 1450 1820 600 Output Total 2050 1600 900 Balance -600 220 -300 Weight 96 kg Intake: IV 100 Sodium Ferric Gluconat- 100 Sucrose 125 mg In Sodium Chloride 0.9% 100 ml @ 100 mls/hr IVPB ONCE ONE Rx#:[id number] Intake, IV Titration 1350 1100 600 Amount Magnesium Sulfate-D5w Pmx 200 1 gm In Dextrose/Water 1 100ml.bag @ 100 mls/hr IVPB Q1H [facility] Rx#: [id number] Potassium Chloride 20 meq 100 Lidocaine 2% Inj 20 mg In Sodium Chloride 0.9% 100 ml @ 55.5 mls/hr IVPB ONCE ONE Rx#:[id number] Sodium Chloride 0.9% 1, 600 1100 600 000 ml @ 100 mls/hr IV . Q10H [facility] Rx#:[id number] Sodium Chloride 0.9% 1, 450 000 ml @ 75 mls/hr IV . [id number] [facility] Rx#:[id number] Oral 720 Output: Urine 2049 1600 900 Other: Voiding Method Indwelling Catheter Indwelling Catheter Indwelling Catheter - Exam General: The patient is awake and alert, in no distress Eye: there is normal conjunctiva bilaterally. Neck: The neck is supple, there is no JVD. Cardiovascular: Normal S1-S2, no S3-S4, no murmurs. Respiratory: Lungs clear to auscultation bilaterally Gastrointestinal: Abdomen is soft, nontender Musculoskeletal: There is no pedal edema. Neurological:. Speech is normal. Skin: Skin is warm and dry - Labs CBC & Chem 7: 09/05/16 04:11 09/05/16 04:11 Labs: Abnormal Lab Results - Last 24 Hours (Table) 09/04/16 09/04/16 09/04/16 Range/Units 14:58 14:58 14:58 WBC 10.7 H (3.8-10.6) k/uL RBC 3.06 L (3.80-5.40) m/uL Hgb 6.6 L* (11.4-16.0) gm/dL Hct 23.0 L (34.0-46.0) % MCV 75.1 L (80.0-100.0) fL MCH 21.5 L (25.0-35.0) pg MCHC 28.6 L (31.0-37.0) g/dL RDW 20.6 H (11.5-15.5) % Neutrophils # 8.9 H (1.3-7.7) k/uL Sodium (137-145) mmol/L Chloride 109 H (98-107) mmol/L Carbon Dioxide 21 L (22-30) mmol/L BUN 4 L (7-17) mg/dL Glucose 116 H (74-99) mg/dL Calcium 8.3 L (8.4-10.2) mg/dL Troponin I 7.130 H* (0.000-0.034) ng/mL 09/05/16 09/05/16 Range/Units 04:11 04:11 WBC (3.8-10.6) k/uL RBC 3.02 L (3.80-5.40) m/uL Hgb 6.4 L* (11.4-16.0) gm/dL Hct 23.8 L (34.0-46.0) % MCV 78.7 L (80.0-100.0) fL MCH 21.2 L (25.0-35.0) pg MCHC 27.0 L (31.0-37.0) g/dL RDW 20.3 H (11.5-15.5) % Neutrophils # (1.3-7.7) k/uL Sodium 136 L (137-145) mmol/L Chloride 109 H (98-107) mmol/L Carbon Dioxide 20 L (22-30) mmol/L BUN 4 L (7-17) mg/dL Glucose (74-99) mg/dL Calcium 8.0 L (8.4-10.2) mg/dL Troponin I (0.000-0.034) ng/mL Microbiology - Last 24 Hours (Table) 09/04/16 08:35 Urine Culture - Final Urine,Catheterized Assessment and Plan Plan: 1. Acute non-ST elevated myocardial infarction: Patient not a candidate for heart catheterization due to her severe anemia. Cardiology is following and currently recommending medical management. Lipitor lisinopril and metoprolol. Echo showed preserved ejection fraction and no significant wall motion abnormality 2. Dysfunctional uterine bleeding due to uterine fibroids with highly suspected malignancy. Seen and evaluated by gynecology. Patient had tissue sampling last week at an outside hospital awaiting pathology to rule out malignancy. 3. Acute on chronic blood loss anemia due to uterine bleeding. Patient refuses any blood products. Hemoglobin 6.4 continue to monitor. Patient was given IV Iron during this admission. Hematology has been consulted. to oral iron 3 times a day 4. Former smoker Patient is a [employer]. She refused all forms of blood product transfusion. She understands the risks including possibly bleeding to . We will continue supportive care otherwise. Continue ICU monitoring. Repeat lab work in the morning.
[2016-09-05] MEDS: SODIUM FERRIC GLUCONAT-SUCROSE 125 MG in SODIUM CHLORIDE 0.9% 100 ML IVPB SCH (16:46)
--- NOTE | 2016-09-05 17:31 | PN ---
DATE OF SERVICE: September 05, 2016. CHIEF COMPLAINT: Tired. Penny is seen today as a follow-up. She feels a little tired. Her chest pain, however, it is better. She continues to have some vaginal bleeding, but it has slowed down. On physical examination she is alert, oriented x3 in no acute distress. VITAL SIGNS: Temperature 98.0, pulse 76 and regular, respiration 19, blood pressure 107/60. HEENT: Normocephalic, atraumatic. NECK: Supple. CHEST: Equal expansion. Lungs are clear. HEART: Regular rate and rhythm. ABDOMEN: Soft. No tenderness. EXTREMITIES: No edema. LABORATORY DATA: From today, WBC 9.8, hemoglobin 6.4, hematocrit 23.8, platelets are 288. IMPRESSION: Severe microcytic anemia related to vaginal bleeding and her anemia has been complicated by chest pain and acute myocardial infarction. The patient has been refusing blood transfusions. She fully understands that she may compromise her survival. RECOMMENDATION: 1. Will continue erythropoietin supplement, will change it to every other day. 2. Continue oral iron and we will continue parenteral iron supplement on a daily basis, hopefully that will improve her hemoglobin over a short period of time.
[2016-09-05] MEDS: NORETHINDRONE 5 MG PO SCH (20:09)
[2016-09-05] MEDS: ESTRADIOL 1 MG TAB PO SCH (20:09)
[2016-09-06 04:47] LABS: Anisocytosis Moderate; CH 20.8; CHCM 26.4; HCT 23.1 % (34.0-46.0); HDW 3.06; Hypochromasia Marked; MCH 21.4 pg (25.0-35.0); MCV 79.7 fL (80.0-100.0); Mean Platelet Volume 6.8; Microcytosis Moderate; RBC 2.89 m/uL (3.80-5.40); RDW 21.4 % (11.5-15.5); WBC (Perox) 9.89
[2016-09-06 05:02] LABS: Anion Gap 7 mmol/L; Blood Urea Nitrogen 7 mg/dL (7-17); Calcium 8.2 mg/dL (8.4-10.2); Carbon Dioxide 19 mmol/L (22-30); Chloride 112 mmol/L (98-107); Glucose 94 mg/dL (74-99); Magnesium 2.2 mg/dL (1.6-2.3); Non-African American GFR(MDRD) >60 (>60 ml/min/1.73 sqM); Phosphorous 3.4 mg/dL (2.5-4.5); Potassium 4.1 mmol/L (3.5-5.1); Sodium 138 mmol/L (137-145)
[2016-09-06 05:06] LABS: HGB 6.2 gm/dL (11.4-16.0); MCHC 26.9 g/dL (31.0-37.0)
[2016-09-06 05:35] LABS: Add Differential Manual Differential
[2016-09-06 05:38] LABS: Manual Review Performed; Nucleated Red Blood Cells 1 /100 WBC (0-0); Total Cells Counted 200; WBC 8.9 k/uL (3.8-10.6)
[2016-09-06 05:39] LABS: Polychromasia Present
--- NOTE | 2016-09-06 08:35 | P.PN ---
Subjective Principal diagnosis: Vaginal bleeding and chest pain She reports no vaginal bleeding overnight. She had minimal bleeding throughout the day yesterday. One episode of chest pain last night. She does feel short of breath when she transfers from the bed to the chair. Objective - Vital Signs Vital signs: Vital Signs Temp 98.1 F 09/06/16 04:00 Pulse 86 09/06/16 07:00 Resp 19 09/06/16 07:00 BP 93/66 09/06/16 07:00 Pulse Ox 98 09/06/16 07:00 Intake & Output 09/05/16 09/06/16 09/06/16 18:59 06:59 18:59 Intake Total 800 1490 Output Total 1900 1495 Balance -1100 -5 Weight 96.4 kg Intake: Intake, IV Titration 800 Amount Sodium Chloride 0.9% 1, 600 000 ml @ 100 mls/hr IV . Q10H [facility] Rx#:[id number] Sodium Ferric Gluconat- 200 Sucrose 125 mg In Sodium Chloride 0.9% 100 ml @ 100 mls/hr IVPB DAILY@ 1600 [facility] Rx#:[id number] Oral 1490 Output: Urine 1900 1495 Other: Voiding Method Indwelling Catheter Indwelling Catheter - Exam Pleasant and comfortable appearing but somewhat dyspneic female. The lungs are clear to auscultation bilaterally and the heart is a regular rate and rhythm. The abdomen is soft and nontender. There is no vaginal bleeding noted on the pad. - Labs CBC & Chem 7: 09/06/16 04:31 09/06/16 04:31 Labs: Abnormal Lab Results - Last 24 Hours (Table) 09/06/16 09/06/16 Range/Units 04:31 04:31 RBC 2.89 L (3.80-5.40) m/uL Hgb 6.2 L* (11.4-16.0) gm/dL Hct 23.1 L (34.0-46.0) % MCV 79.7 L (80.0-100.0) fL MCH 21.4 L (25.0-35.0) pg MCHC 26.9 L (31.0-37.0) g/dL RDW 21.4 H (11.5-15.5) % Monocytes # (Manual) 1.1 H (0-1.0) k/uL Nucleated RBCs 1 H (0-0) /100 WBC Chloride 112 H (98-107) mmol/L Carbon Dioxide 19 L (22-30) mmol/L Calcium 8.2 L (8.4-10.2) mg/dL Microbiology - Last 24 Hours (Table) 09/04/16 08:35 Urine Culture - Final Urine,Catheterized Assessment and Plan (1) Enlarged uterus Status: Acute (2) ST elevation myocardial infarction (STEMI) Status: Acute (3) Postmenopausal bleeding Narrative/Plan: Currently no active vaginal bleeding. Tomorrow we will recontact [facility] for pathology results from her endometrial biopsy done last week. Status: Acute (4) Chest pain Status: Acute (5) Anemia Narrative/Plan: Acute on chronic blood loss anemia. She is getting IV iron and Procrit. Hemoglobin this morning is stable at 6.2. It is reassuring that she is not having any active bleeding at this time. She is a [employer] and refuses blood products. Status: Acute Time with Patient: Less than 30
[2016-09-06] MEDS: FERROUS SULFATE 325 MG TAB PO SCH ×3 (09:14→16:20)
[2016-09-06] MEDS: ASPIRIN 81 MG CHEW PO SCH (09:15)
[2016-09-06] MEDS: PANTOPRAZOLE 40 MG TABLET PO SCH (09:15)
[2016-09-06] MEDS: ATORVASTATIN 80 MG TAB PO SCH (09:15)
[2016-09-06] MEDS: METOPROLOL TARTRATE 25 MG TAB PO SCH ×2 (09:16→20:01)
[2016-09-06] MEDS: LISINOPRIL 2.5 MG TAB PO SCH ×2 (09:16→20:01)
[2016-09-06] MEDS: FLUTICASONE 50MCG/SPRAY NASAL 16GM EA NOSTRIL SCH (09:16)
[2016-09-06] MEDS: MORPHINE SULFATE 2 MG/ML SYRINGE IVP PRN ×2 (09:52→16:28)
--- NOTE | 2016-09-06 13:17 | P.PN ---
Subjective Patient is doing well today. No events overnight. Objective - Vital Signs Vital signs: Vital Signs Temp 98.4 F 09/06/16 12:00 Pulse 74 09/06/16 12:00 Resp 21 09/06/16 12:00 BP 111/60 09/06/16 12:00 Pulse Ox 98 09/06/16 12:00 Intake & Output 09/05/16 09/06/16 09/06/16 18:59 06:59 18:59 Intake Total 800 1490 Output Total 1900 1495 575 Balance -1100 -5 -575 Weight 96.4 kg Intake: Intake, IV Titration 800 Amount Sodium Chloride 0.9% 1, 600 000 ml @ 100 mls/hr IV . Q10H [facility] Rx#:[id number] Sodium Ferric Gluconat- 200 Sucrose 125 mg In Sodium Chloride 0.9% 100 ml @ 100 mls/hr IVPB DAILY@ 1600 [facility] Rx#:[id number] Oral 1490 Output: Urine 1900 1495 575 Other: Voiding Method Indwelling Catheter Indwelling Catheter Indwelling Catheter - Exam General: The patient is awake and alert, in no distress Eye: there is normal conjunctiva bilaterally. Neck: The neck is supple, there is no JVD. Cardiovascular: Normal S1-S2, no S3-S4, no murmurs. Respiratory: Lungs clear to auscultation bilaterally Gastrointestinal: Abdomen is soft, nontender Musculoskeletal: There is no pedal edema. Neurological:. Speech is normal. Skin: Skin is warm and dry - Labs CBC & Chem 7: 09/06/16 04:31 09/06/16 04:31 Labs: Abnormal Lab Results - Last 24 Hours (Table) 09/06/16 09/06/16 Range/Units 04:31 04:31 RBC 2.89 L (3.80-5.40) m/uL Hgb 6.2 L* (11.4-16.0) gm/dL Hct 23.1 L (34.0-46.0) % MCV 79.7 L (80.0-100.0) fL MCH 21.4 L (25.0-35.0) pg MCHC 26.9 L (31.0-37.0) g/dL RDW 21.4 H (11.5-15.5) % Monocytes # (Manual) 1.1 H (0-1.0) k/uL Nucleated RBCs 1 H (0-0) /100 WBC Chloride 112 H (98-107) mmol/L Carbon Dioxide 19 L (22-30) mmol/L Calcium 8.2 L (8.4-10.2) mg/dL Microbiology - Last 24 Hours (Table) 09/04/16 08:35 Urine Culture - Final Urine,Catheterized Assessment and Plan Plan: 1. Acute non-ST elevated myocardial infarction: Most likely precipitated by supply demand mismatch Patient not a candidate for heart catheterization due to her severe anemia. Seen and evaluated by cardiology, continue medical management. Lipitor lisinopril and metoprolol. Echo showed preserved ejection fraction and no significant wall motion abnormality 2. Dysfunctional uterine bleeding due to uterine fibroids with highly suspected malignancy. Seen and evaluated by gynecology. Patient had tissue sampling last week at an outside hospital awaiting pathology to rule out malignancy. 3. Acute on chronic blood loss anemia due to uterine bleeding. Patient refuses any blood products. Hemoglobin 6.4 continue to monitor. Patient was given IV Iron during this admission. Hematology has been consulted. to oral iron 3 times a day 4. Former smoker Patient is a Jew. She refused all forms of blood product transfusion. She understands the risks including possibly bleeding to . We will continue supportive care otherwise. Continue ICU monitoring. Repeat lab work in the morning. No evidence of ongoing bleed. Hemoglobin has stabilized. Patient may be transferred outside of the intensive care physician practice units.
--- NOTE | 2016-09-06 14:00 | P.PN ---
Subjective Principal diagnosis: Acute ST elevation myocardial infarction and massive vaginal bleeding This is a 66-year-old female with no previous documented history of coronary artery disease, presented to the ER with acute onset of chest discomfort and dyspnea with pain radiating to her neck. EKG by EMS showed mild ST segment elevation in lead 1 and aVL. 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 Hence surgery was never done waiting mostly for higher level and her hemoglobin and hoping to correct her anemia before any surgical intervention. Hence hysterectomy was never done. Patient was seen by cardiology upon presentation, and because of high risk of further bleeding from the cardiac catheterization, patient was not felt to be a candidate for primary angioplasty in spite of the fact that the patient most likely had acute ST segment elevation myocardial infarction in the lateral leads. Patient continues to refuse any blood transfusion, hence multiple consultants were consulted regarding her condition including cardiology, gynecology, and hematology. I thoroughly explained the situation to the patient, and she is definitely against transfusion of any blood products. Patient is very well aware that her condition at this point without blood transfusion could be fatal. Patient was reevaluated today on 09/05/2016, she is basically about the same, her CODE STATUS was changed to DO NOT RESUSCITATE, patient is very well aware today that her condition is quite critical unless a blood transfusion could be given. Patient continues to insist against any blood transfusion because of her face. And that will be respected. Hemoglobin is a bit down further today to 6.4. Her electrolytes are normal renal profile is normal. Patient is receiving Procrit and iron infusions. Reevaluated today on 09/06/2016, patient is basically about the same. Hemoglobin is 6.2 today. Patient has hardly any bleeding at this point, no chest pain no shortness of breath no cough no wheezing, and her bleeding seems to be in active. Objective - Vital Signs Vital signs: Vital Signs Temp 98.4 F 09/06/16 12:00 Pulse 77 09/06/16 13:00 Resp 21 09/06/16 13:00 BP 108/65 09/06/16 13:00 Pulse Ox 98 09/06/16 13:00 Intake & Output 09/05/16 09/06/16 09/06/16 18:59 06:59 18:59 Intake Total 800 1490 Output Total 1900 1495 675 Balance -1099 Weight 96.4 kg Intake: Intake, IV Titration 800 Amount Sodium Chloride 0.9% 1, 600 000 ml @ 100 mls/hr IV . Q10H [facility] Rx#:[id number] Sodium Ferric Gluconat- 200 Sucrose 125 mg In Sodium Chloride 0.9% 100 ml @ 100 mls/hr IVPB DAILY@ 1600 [facility] Rx#:[id number] Oral 1490 Output: Urine 1900 1495 675 Other: Voiding Method Indwelling Catheter Indwelling Catheter Indwelling Catheter - Exam Physical Exam: Revealed a 66-year-old female anxious in no form of respiratory distress, noted to be anxious and tachycardic. HEENT:[Neck is supple.] [No neck masses.] [No thyromegaly.] [No JVD.] Chest: [Clear throughout, no crackles, no rhonchi, no wheezes.] Cardiac Exam: [Normal S1 and S2, no S3 gallop, no murmur.] Abdomen: [Soft, nontender, no megaly, no rebound, no guarding, normal bowel sounds.] Extremities: [No clubbing, no edema, no cyanosis.] Neurological Exam: [No focal neurologic deficit.] - Labs CBC & Chem 7: 09/06/16 04:31 09/06/16 04:31 Labs: Abnormal Lab Results - Last 24 Hours (Table) 09/06/16 09/06/16 Range/Units 04:31 04:31 RBC 2.89 L (3.80-5.40) m/uL Hgb 6.2 L* (11.4-16.0) gm/dL Hct 23.1 L (34.0-46.0) % MCV 79.7 L (80.0-100.0) fL MCH 21.4 L (25.0-35.0) pg MCHC 26.9 L (31.0-37.0) g/dL RDW 21.4 H (11.5-15.5) % Monocytes # (Manual) 1.1 H (0-1.0) k/uL Nucleated RBCs 1 H (0-0) /100 WBC Chloride 112 H (98-107) mmol/L Carbon Dioxide 19 L (22-30) mmol/L Calcium 8.2 L (8.4-10.2) mg/dL Microbiology - Last 24 Hours (Table) 09/04/16 08:35 Urine Culture - Final Urine,Catheterized Assessment and Plan Plan: Impression: [address] segment elevation myocardial infarction 2 chronic severe anemia secondary to chronic active vaginal bleeding. 3 patient is a Jehovah witness, refuses any blood products, no matter what. Patient was made aware of the severity of her condition, and still refuses any transfusion of any blood products. Recommendation: Continue present treatment plan, consider transferring the patient to a monitored bed on selective, but continue to monitor closely, not quite ready for discharge planning at this point. Prognosis remains poor and guarded. Time with Patient: Less than 30
[2016-09-06] MEDS: SODIUM FERRIC GLUCONAT-SUCROSE 125 MG in SODIUM CHLORIDE 0.9% 100 ML IVPB SCH (16:20)
[2016-09-06] MEDS: DARBEPOETIN ALFA 100MCG/0.5ML SYRINGE SQ SCH (16:20)
--- NOTE | 2016-09-06 19:48 | CONS ---
DATE OF CONSULTATION: 09/05/2016 This patient was admitted with chest discomfort. EKG was suggestive of acute myocardial infarction. Patient subsequently was found to have vaginal bleeding and hemoglobin of 6.2 gm. Patient did not want any kind of blood products. The patient fully understands the risks. The patient remains hemodynamically stable now. She continues to have some bleeding. Hemoglobin is 6.2, vital signs remain stable. Blood pressure is 110/79 millimeters of Hg. S1 and S2 normal. Lungs are clinically clear to auscultation and percussion. Patient echocardiogram reveals a normal left ventricular systolic function any significant wall motion abnormality. Patient was reassured. Will continue the current medical treatment.
--- NOTE | 2016-09-06 19:54 | PN ---
DATE OF SERVICE: 09/06/2016 Patient is feeling better. Remains comfortable. Her vagina bleeding has slowed down. Patient remains again is hemodynamically stable. Electrolytes are normal. Creatinine is 0.8. Hemoglobin is 6.8. Blood pressure is 106/79 ninths millimeters of Hg. First and second heart sounds are normal. Lungs are clear to auscultation and percussion. FINAL IMPRESSION: This patient's bleeding has subsided. She remains hemodynamically stable, without any symptoms of angina. We will continue the medical treatment and patient will be transferred to the selective care unit.
[2016-09-06] MEDS: ESTRADIOL 1 MG TAB PO SCH (20:02)
[2016-09-06] MEDS: NORETHINDRONE 5 MG PO SCH (20:02)
--- NOTE | 2016-09-06 22:32 | P.CONS ---
History of Present Illness - Reason for Consult Consult date: 09/04/16 Severe anemia. - History of Present Illness The patient is a 66-year-old lady, who is a L[employer]. She has had a history of vaginal bleeding off and on since 1990, causing anemia. This has become more severe recently, and surgery was being considered. However her hemoglobin was too low to permit surgery safely. She had been taking oral iron supplements in the outpatient setting apparently without of improvement to permit surgery. She does have a known history of coronary artery disease. About a week prior to this admission, she had an episode of upper back and neck pain, as well as cramping of the leg associated with some nausea and diaphoresis at night. This resolved spontaneously over several minutes. She then again developed some mid chest pain, with nausea and diaphoresis, with radiation to the neck and shoulder. This was acute in onset. He therefore came into the emergency room, and was found to have EKG changes suspicious for acute coronary syndrome. Her hemoglobin was low at 6.4. The patient was having persistent bleeding per vaginum. The consent of troponins as well as CK-MB showed marked elevation, indicating of acute myocardial infarction. Due to ongoing bleeding, and low hemoglobin, the patient was not felt to be an appropriate candidate for coronary intervention, especially as she was steadfastly refusing any blood product transfusion. She did receive IV Ativan. Consult was placed for further evaluation and recommendations. The patient denies any prior hospitalization for bleeding problems. She remains adamant in her refusal to take any blood products. The case was discussed extensively with the admitting service, pulmonary medicine as well as gynecology. Review of Systems Constitutional: Reports weakness Eyes: denies blurred vision, denies pain Ears: deny: decreased hearing, ear discharge, earache, tinnitus Ears, nose, mouth and throat: Denies headache, Denies sore throat Cardiovascular: Reports chest pain, Reports shortness of breath Respiratory: Reports dyspnea Gastrointestinal: Denies abdominal pain, Denies diarrhea, Denies nausea, Denies vomiting Genitourinary: Reports abnormal vaginal bleeding, Reports vaginal itching Menstruation: Reports postmenopausal Musculoskeletal: Denies myalgias Integumentary: Denies pruritus, Denies rash Neurological: Reports weakness Psychiatric: Denies anxiety, Denies depression Endocrine: Denies fatigue, Denies weight change Hematologic/Lymphatic: Reports as per HPI Past Medical History Past Medical History: Sleep Apnea/CPAP/BIPAP Additional Past Medical History / Comment(s): Anemia, uterine bleeding from adenomyosis History of Any Multi-Drug Resistant Organisms: None Reported Past Surgical History: No Surgical Hx Reported Past Anesthesia/Blood Transfusion Reactions: Postoperative Nausea & Vomiting ( PONV) Past Psychological History: No Psychological Hx Reported Smoking Status: Former smoker Past Alcohol Use History: Occasional Past Drug Use History: None Reported - Past Family History Father Family Medical History: Myocardial Infarction (ND) Medications and Allergies Home Medications Medication Instructions Recorded Confirmed Type Albuterol Inhaler [Ventolin Hfa 1 puff PO RT-Q4H PRN 09/04/16 09/04/16 History Inhaler] Estradiol [Estradiol] 1 mg PO HS 09/04/16 09/04/16 History Ferrous Sulfate [Iron (65 MG 325 mg PO TID 09/04/16 09/04/16 History Elemental)] Fluticasone Nasal [place] [Flonase 2 sprays EA NOSTRIL DAILY 09/04/16 09/04/16 History Nasal [place]] Loratadine [Claritin] 10 mg PO DAILY PRN 09/04/16 09/04/16 History Norethindrone 5 mg PO HS 09/04/16 09/04/16 History Allergies Allergy/AdvReac Type Severity Reaction Status Date / Time erythromycin base Allergy Nausea Verified 09/04/16 04:08 metronidazole [From Flagyl] AdvReac Rash/Hives Verified 09/04/16 02:45 Physical Exam Vitals: Vital Signs Temp Pulse Resp BP Pulse Ox 09/04/16 15:00 97 18 152/85 99 09/04/16 14:00 97 13 156/93 100 09/04/16 13:00 101 H 21 151/86 96 09/04/16 12:00 97.8 F 98 18 156/92 98 09/04/16 11:00 96 18 162/90 98 09/04/16 10:00 117 H 17 174/99 98 09/04/16 09:00 113 H 18 145/69 100 09/04/16 08:00 97.9 F 105 H 17 167/107 99 09/04/16 07:00 109 H 20 156/91 99 09/04/16 06:00 98.5 F 98 16 147/68 100 03/03/17 05:30 64 16 147/68 100 09/04/16 05:00 107 H 18 150/82 100 09/04/16 04:30 108 H 20 142/77 100 09/04/16 04:00 96.8 F L 105 H 16 135/73 100 09/04/16 03:39 105 H Intake and Output 09/04/16 09/04/16 09/04/16 06:59 14:59 22:59 Intake Total 225 750 100 Output Total 200 1475 175 Balance 25 5 75 Intake: IV 100 Sodium Ferric Gluconat- 100 Sucrose 125 mg In Sodium Chloride 0.9% 100 ml @ 100 mls/hr IVPB ONCE ONE Rx#:[id number] Intake, IV Titration 225 650 100 Amount Sodium Chloride 0.9% 1, 200 100 000 ml @ 100 mls/hr IV . Q10H [facility] Rx#:[id number] Sodium Chloride 0.9% 1, 225 450 000 ml @ 75 mls/hr IV . [id number] [facility] Rx#:[id number] Output: Urine 200 1475 175 Other: Voiding Method Bedpan Indwelling Catheter # Voids 1 Weight 96.8 kg - Constitutional General appearance: mild distress - EENT Eyes: EOMI, PERRLA ENT: hearing grossly normal, normal oropharynx - Neck Neck: no lymphadenopathy Thyroid: bilateral: normal size - Respiratory Respiratory: bilateral: CTA - Cardiovascular Rhythm: regular - Gastrointestinal General gastrointestinal: normal bowel sounds, soft - Integumentary Integumentary: normal - Neurologic Neurologic: CNII-XII intact - Musculoskeletal Musculoskeletal: generalized weakness, strength equal bilaterally - Psychiatric Psychiatric: A&O x's 3, appropriate affect Results CBC & Chem 7: 09/06/16 04:31 09/06/16 04:31 Labs: Abnormal Lab Results - Last 24 Hours (Table) 09/04/16 09/04/16 09/04/16 Range/Units 03:38 08:54 14:58 WBC 10.7 H (3.8-10.6) k/uL RBC 3.06 L (3.80-5.40) m/uL Hgb 6.6 L* (11.4-16.0) gm/dL Hct 23.0 L (34.0-46.0) % MCV 75.1 L (80.0-100.0) fL MCH 21.5 L (25.0-35.0) pg MCHC 28.6 L (31.0-37.0) g/dL RDW 20.6 H (11.5-15.5) % Chloride (98-107) mmol/L Carbon Dioxide (22-30) mmol/L BUN (7-17) mg/dL Glucose (74-99) mg/dL POC Glucose (mg/dL) 114 H (75-99) mg/dL Calcium (8.4-10.2) mg/dL Total Creatine Kinase 332 H (30-135) U/L CK-MB (CK-2) 27.4 H* (0.0-2.4) ng/mL Troponin I 2.320 H* (0.000-0.034) ng/mL 09/04/16 Range/Units 14:58 WBC (3.8-10.6) k/uL RBC (3.80-5.40) m/uL Hgb (11.4-16.0) gm/dL Hct (34.0-46.0) % MCV (80.0-100.0) fL MCH (25.0-35.0) pg MCHC (31.0-37.0) g/dL RDW (11.5-15.5) % Chloride 109 H (98-107) mmol/L Carbon Dioxide 21 L (22-30) mmol/L BUN 4 L (7-17) mg/dL Glucose 116 H (74-99) mg/dL POC Glucose (mg/dL) (75-99) mg/dL Calcium 8.3 L (8.4-10.2) mg/dL Total Creatine Kinase (30-135) U/L CK-MB (CK-2) (0.0-2.4) ng/mL Troponin I (0.000-0.034) ng/mL Comments: ECHO report reviewed Chest x-ray: report reviewed Assessment and Plan Plan: Acute on chronic severe blood loss anemia- the clinical situation is very complicated at this time. The patient is having an acute myocardial infarction, which is in evolution. She is still having intermittent chest pains. As noted, she is not felt to be a candidate for cardiac catheterization due to her severe anemia, and her refusal to take blood products. Ideally in this situation, blood transfusions would definitely be recommended. However the patient remains steadfast and refusing those. Per the [employer] literature, the patient has been started on IV iron , as well as Procrit. It was discussed with her, that red cell response to IV iron typically takes at least a week while to Procrit, may take up to 4 weeks or more. Therefore their efficacy in severe anemia with ongoing bleeding is definitely doubtful. For volume expansion, synthetic surgical aides teacher such as hetastarch can be used. At this time however, the patient is not hemodynamically unstable. We also discussed " artificial hemoglobins/oxygen transporters" with pulmonary medicine. None of these products are FDA approved for use in the [place]. Hemopure was found to be effective in a clinical trial and actually approved by the [employer]. However due to adverse events, it was not approved for marketing in the [place]. Measures to halt the bleeding could be of benefit. From the hematology standpoint, these options include Amicar, Sandostatin and desmopressin. This can be quite effective for mucosal bleeding. However Amicar can cause thrombosis , while Sandostatin and desmopressin can cause vasoconstriction. Thus these medications would carry a high risk in a patient with evolving acute ND. Case was also discussed with the gynecology. Given her age, and pattern of bleeding, there is concern that she may even have a pathology other than fibroids causing the bleeding. High dose progesterone, which is used in dysfunctional uterine bleeding, may not be effective in this situation. Given our major limitations to treatment, patient is at very high risk of complications including . This was discussed in detail with her. She expressed that she understood the risk, but at this point does not want any blood products.
[2016-09-07 04:57] LABS: Anisocytosis Moderate; CH 21.4; CHCM 27.4; Hypochromasia Marked; Microcytosis Moderate
[2016-09-07 05:00] LABS: Basophils % (A) 0 %; Eosinophils # (A) 0.3 k/uL (0-0.7); Eosinophils % (A) 3 %; HCT 23.8 % (34.0-46.0); HGB 6.6 gm/dL (11.4-16.0); Luc # (Auto) 0.21; Luc % (Auto) 2; Lymphocytes # (A) 1.3 k/uL (1.0-4.8); Lymphocytes % (A) 12 %; MCH 21.9 pg (25.0-35.0); Mean Platelet Volume 7.4; Monocytes # (A) 0.6 k/uL (0-1.0); Monocytes % (A) 6 %; Neutrophils # (A) 8.5 k/uL (1.3-7.7); Neutrophils % (A) 77 %; RBC 3.01 m/uL (3.80-5.40); RDW 23.8 % (11.5-15.5); WBC (Perox) 10.55
[2016-09-07 05:01] LABS: MCHC 27.7 g/dL (31.0-37.0)
[2016-09-07 05:14] LABS: Anion Gap 8 mmol/L; Blood Urea Nitrogen 9 mg/dL (7-17); Calcium 8.5 mg/dL (8.4-10.2); Carbon Dioxide 22 mmol/L (22-30); Chloride 111 mmol/L (98-107); Glucose 97 mg/dL (74-99); Non-African American GFR(MDRD) >60 (>60 ml/min/1.73 sqM); Phosphorous 3.9 mg/dL (2.5-4.5); Potassium 3.9 mmol/L (3.5-5.1); Sodium 141 mmol/L (137-145)
[2016-09-07] MEDS: FERROUS SULFATE 325 MG TAB PO SCH ×3 (08:22→17:31)
[2016-09-07] MEDS: METOPROLOL TARTRATE 25 MG TAB PO SCH ×2 (08:22→20:33)
[2016-09-07] MEDS: ASPIRIN 81 MG CHEW PO SCH (08:22)
[2016-09-07] MEDS: FLUTICASONE 50MCG/SPRAY NASAL 16GM EA NOSTRIL SCH (08:22)
[2016-09-07] MEDS: PANTOPRAZOLE 40 MG TABLET PO SCH (08:22)
[2016-09-07] MEDS: ATORVASTATIN 80 MG TAB PO SCH (08:23)
[2016-09-07] MEDS: LISINOPRIL 2.5 MG TAB PO SCH ×2 (10:00→20:32)
--- NOTE | 2016-09-07 10:47 | P.PN ---
Subjective Progress note dated 09/07/2016 This is a 66-year-old female with history of Judaism. She apparently came in with vaginal bleeding was found be quite anemic. She also presented with what appeared to be in ST segment elevation myocardial infarction. Because of the fact that she was doing so well, no procedures were done or anticipated. She was admitted back on 09/04/2016. Currently not receiving any IV fluids. Not receiving any supplemental oxygen. She's a selective overflowing to be transferred out of the unit today. Feeling well. No respiratory issues. No hemodynamic issues to speak of. Objective - Vital Signs Vital signs: Vital Signs Temp 99.7 F H 09/07/16 08:00 Pulse 93 09/07/16 08:00 Resp 14 09/07/16 08:00 BP 108/64 09/07/16 08:00 Pulse Ox 97 09/07/16 03:09 Intake & Output 09/06/16 09/07/16 09/07/16 18:59 06:59 18:59 Intake Total 200 Output Total 675 Balance -675 200 Weight 95.6 kg Intake: Oral 200 Output: Urine 675 Other: Voiding Method Indwelling Catheter Toilet # Voids 4 2 # Bowel Movements 1 1 - Exam No acute distress, oriented 3. HEENT examination is grossly unremarkable. Mucous membranes are moist. No oral lesions. Neck supple. Full range of motion. No adenopathy or thyromegaly. Cardiovascular examination reveals regular rhythm rate. S1 and S2 normal. No S3-S4 or murmur. Lungs are clear breath sounds are equal. No adventitious lung sounds. Abdomen is soft. Extremities are intact. - Labs CBC & Chem 7: 09/07/16 04:33 09/07/16 04:33 Labs: Abnormal Lab Results - Last 24 Hours (Table) 09/07/16 09/07/16 Range/Units 04:33 04:33 WBC 11.0 H (3.8-10.6) k/uL RBC 3.01 L (3.80-5.40) m/uL Hgb 6.6 L* (11.4-16.0) gm/dL Hct 23.8 L (34.0-46.0) % MCV 79.0 L (80.0-100.0) fL MCH 21.9 L (25.0-35.0) pg MCHC 27.7 L (31.0-37.0) g/dL RDW 23.8 H (11.5-15.5) % Neutrophils # 8.5 H (1.3-7.7) k/uL Chloride 111 H (98-107) mmol/L Assessment and Plan (1) Anemia Status: Acute (2) Postmenopausal bleeding Status: Acute (3) ST elevation myocardial infarction (STEMI) Status: Acute Plan: Plan The patient's doing well. The patient could be discharged out of the unit. No additional recommendations are made. She needs a bit over and 6 selective. Currently there is a shortage of beds over there. The patient is not receiving any IV fluids. No supplemental oxygen. Alternatively, the patient stable could be discharged home. Time with Patient: Less than 30
--- NOTE | 2016-09-07 13:56 | P.PN ---
Subjective Patient presented with evidence of a non-ST elevated WA. Patient's chest pain has shown improvement. Patient reports that she did have some episodes of chest pain off and on yesterday. As far as her uterine bleeding she's only had a few blood clots yesterday. No bleeding this morning. Patient is currently in selective overflow. Denies any shortness of breath. Denies a nausea vomiting. She did have a bowel movement this morning. Denies any difficulty urinating. Objective - Vital Signs Vital signs: Vital Signs Temp 98.2 F 09/07/16 12:00 Pulse 90 09/07/16 12:00 Resp 14 09/07/16 12:00 BP 127/77 09/07/16 12:00 Pulse Ox 99 09/07/16 12:00 Intake & Output 09/06/16 09/07/16 09/07/16 18:59 06:59 18:59 Intake Total 700 Output Total 675 Balance -675 700 Weight 95.6 kg Intake: Oral 700 Output: Urine 675 Other: Voiding Method Indwelling Catheter Toilet # Voids 4 1 # Bowel Movements 1 1 - Exam Head normocephalic Neck supple Lungs clear to auscultation bilaterally no wheezing or crackles Heart regular rate and rhythm S1-S2, no rub or gallop Abdomen is soft nontender nondistended positive bowel sounds no hepatosplenomegaly Extremities no edema Neuro alert and orientated to 3 - Labs CBC & Chem 7: 09/07/16 04:33 09/07/16 04:33 Labs: Abnormal Lab Results - Last 24 Hours (Table) 09/07/16 09/07/16 Range/Units 04:33 04:33 WBC 11.0 H (3.8-10.6) k/uL RBC 3.01 L (3.80-5.40) m/uL Hgb 6.6 L* (11.4-16.0) gm/dL Hct 23.8 L (34.0-46.0) % MCV 79.0 L (80.0-100.0) fL MCH 21.9 L (25.0-35.0) pg MCHC 27.7 L (31.0-37.0) g/dL RDW 23.8 H (11.5-15.5) % Neutrophils # 8.5 H (1.3-7.7) k/uL Chloride 111 H (98-107) mmol/L Assessment and Plan Plan: 1. Acute ST elevated myocardial infarction:Most likely precipitated by supply demand mismatch due to her anemia. Patient not a candidate for heart catheterization due to her severe anemia. Seen and evaluated by cardiology, continue medical management. Lipitor lisinopril and metoprolol. Echo showed preserved ejection fraction and no significant wall motion abnormality 2. Dysfunctional uterine bleeding due to uterine fibroids with highly suspected malignancy. Seen and evaluated by gynecology. Patient had tissue sampling last week at an outside hospital awaiting pathology to rule out malignancy. 3. Acute on chronic blood loss anemia due to uterine bleeding. Patient refuses any blood products. She is a Jehovah witness. Seen and evaluated by hematology. Hemoglobin 6.6. She has received IV iron and Procrit 4. Former smoker Patient is a Jew. She refused all forms of blood product transfusion. She understands the risks including possibly bleeding to . We will continue supportive care otherwise. GI prophylaxis Protonix and DVT prophylaxis SCDs
[2016-09-07] MEDS: SODIUM FERRIC GLUCONAT-SUCROSE 125 MG in SODIUM CHLORIDE 0.9% 100 ML IVPB SCH (16:22)
[2016-09-07] MEDS ORDERED: ACETAMINOPHEN TAB 325 MG TAB PO PRN (20:00)
[2016-09-07] MEDS: ESTRADIOL 1 MG TAB PO SCH (20:32)
[2016-09-07] MEDS: NORETHINDRONE 5 MG PO SCH (20:33)
--- NOTE | 2016-09-07 20:57 | PN ---
This patient came with profuse vaginal bleeding and cod-FZ-raocwkh-elevation myocardial infarction. Patient is doing well. She remains pain-free. Her bleeding is subsiding and is stable. She remains hemodynamically stable. Blood pressure is 127/77 mmHg. HEART: First and second heart sounds are normal. Lungs are clinically clear to auscultation and percussion. At present I will recommend to continue the patient on medical treatment. Patient will need further evaluation with possible cardiac catheterization if any hysterectomy is planned.
[2016-09-08 04:40] LABS: Anisocytosis Marked; Basophils % (A) 0 %; CH 21.6; CHCM 26.4; Eosinophils # (A) 0.2 k/uL (0-0.7); Eosinophils % (A) 2 %; HCT 25.9 % (34.0-46.0); HDW 3.07; HGB 7.1 gm/dL (11.4-16.0); Hypochromasia Marked; Luc # (Auto) 0.29; Luc % (Auto) 3; Lymphocytes # (A) 1.2 k/uL (1.0-4.8); Lymphocytes % (A) 11 %; MCH 22.7 pg (25.0-35.0); MCV 82.6 fL (80.0-100.0); Macrocytosis Slight; Mean Platelet Volume 8.3; Microcytosis Slight; Monocytes # (A) 0.8 k/uL (0-1.0); Monocytes % (A) 7 %; Neutrophils # (A) 8.3 k/uL (1.3-7.7); Neutrophils % (A) 77 %; RBC 3.13 m/uL (3.80-5.40); RDW 24.8 % (11.5-15.5); WBC 10.7 k/uL (3.8-10.6); WBC (Perox) 10.71
[2016-09-08 04:41] LABS: MCHC 27.5 g/dL (31.0-37.0)
[2016-09-08 04:45] LABS: Anion Gap 10 mmol/L; Blood Urea Nitrogen 8 mg/dL (7-17); Calcium 8.6 mg/dL (8.4-10.2); Carbon Dioxide 20 mmol/L (22-30); Chloride 111 mmol/L (98-107); Glucose 94 mg/dL (74-99); Magnesium 1.9 mg/dL (1.6-2.3); Non-African American GFR(MDRD) >60 (>60 ml/min/1.73 sqM); Phosphorous 4.3 mg/dL (2.5-4.5); Potassium 4.1 mmol/L (3.5-5.1); Sodium 141 mmol/L (137-145)
[2016-09-08] MEDS: MAGNESIUM SULFATE-D5W PMX 1 GM in DEXTROSE/WATER 1 100ML.BAG IVPB SCH ×2 (05:33→06:45)
[2016-09-08] MEDS: ASPIRIN 81 MG CHEW PO SCH (08:44)
[2016-09-08] MEDS: FLUTICASONE 50MCG/SPRAY NASAL 16GM EA NOSTRIL SCH (08:44)
[2016-09-08] MEDS: FERROUS SULFATE 325 MG TAB PO SCH ×3 (08:44→17:47)
[2016-09-08] MEDS: ATORVASTATIN 80 MG TAB PO SCH (08:44)
[2016-09-08] MEDS: PANTOPRAZOLE 40 MG TABLET PO SCH (08:44)
[2016-09-08] MEDS: METOPROLOL TARTRATE 25 MG TAB PO SCH ×2 (08:45→17:47)
[2016-09-08] MEDS: LISINOPRIL 2.5 MG TAB PO SCH ×2 (08:45→17:47)
--- NOTE | 2016-09-08 09:18 | P.PN ---
Subjective Patient reports no vaginal bleeding for 48 hours. She is feeling much better and denies shortness of breath chest pain or heart burn. She has not done much ambulating other than in the hospital room. She is able to go back and forth from the bed to the bathroom without shortness of breath now. She denies abdominal pain, bowel or bladder symptoms. She was restarted on her estradiol and norethindrone yesterday. Review of endometrial biopsy report performed on 09/02/2016 at [facility] is nondiagnostic. Specimen was only clot and debris. See report on patient's paper chart. Objective - Vital Signs Vital signs: Vital Signs Temp 98.3 F 09/08/16 04:00 Pulse 91 09/08/16 04:00 Resp 18 09/08/16 04:00 BP 116/70 09/08/16 04:00 Pulse Ox 99 09/08/16 04:00 Intake & Output 09/07/16 09/08/16 09/08/16 18:59 06:59 18:59 Intake Total 1050 680 Balance 1050 680 Weight 96 kg Intake: Intake, IV Titration 100 200 Amount Magnesium Sulfate-D5w Pmx 200 1 gm In Dextrose/Water 1 100ml.bag @ 100 mls/hr IVPB Q1H [facility] Rx#: [id number] Sodium Ferric Gluconat- 100 Sucrose 125 mg In Sodium Chloride 0.9% 100 ml @ 100 mls/hr IVPB DAILY@ 1600 [facility] Rx#:[id number] Oral 950 480 Other: Voiding Method Toilet Toilet # Voids 1 1 # Bowel Movements 1 - Exam Patient is up in the chair eating breakfast this morning. Color is better. She is in no acute distress. No active bleeding noted on pad. - Labs CBC & Chem 7: 09/08/16 04:13 09/08/16 04:12 Labs: Abnormal Lab Results - Last 24 Hours (Table) 09/08/16 09/08/16 Range/Units 04:12 04:13 WBC 10.7 H (3.8-10.6) k/uL RBC 3.13 L (3.80-5.40) m/uL Hgb 7.1 L (11.4-16.0) gm/dL Hct 25.9 L (34.0-46.0) % MCH 22.7 L (25.0-35.0) pg MCHC 27.5 L (31.0-37.0) g/dL RDW 24.8 H (11.5-15.5) % Neutrophils # 8.3 H (1.3-7.7) k/uL Chloride 111 H (98-107) mmol/L Carbon Dioxide 20 L (22-30) mmol/L Assessment and Plan (1) Enlarged uterus Status: Acute (2) ST elevation myocardial infarction (STEMI) Status: Acute (3) Postmenopausal bleeding Narrative/Plan: Patient has significant history of postmenopausal bleeding, enlarged abnormal fibroid uterus with significantly thickened endometrial stripe. Recent endometrial biopsy at outside facility is nondiagnostic. At age 66 with significant undiagnosed postmenopausal bleeding, hormones of any kind are an absolute contraindication. Her estradiol and norethindrone should be discontinued. With probable uterine pathology there is limited ability for hormonal manipulation to stabilize the endometrium and control bleeding, and it is quite possible that hormonal stimulation may actually create more bleeding in the long run. She needs a D&C for diagnosis and ultimately hysterectomy. With an enlarging fibroid appearing uterus and abnormal bleeding at age 66, leiomyosarcoma is in the differential diagnosis. As her hemoglobin is significantly improving and she is less symptomatic she will likely be stable for D&C procedure. This can be done during this admission or if the patient is discharged home she has an established management analyst that she can follow up with as well. SHe will require cardiac clearance. Status: Acute (4) Chest pain Status: Acute (5) Anemia Narrative/Plan: Hemoglobin improving to 7.1. She has less symptomatic. Status: Acute Time with Patient: Less than 30
--- NOTE | 2016-09-08 10:47 | P.PN ---
Subjective Progress note dated 09/07/2016 This is a 66-year-old female with history of Church. She apparently came in with vaginal bleeding was found be quite anemic. She also presented with what appeared to be in ST segment elevation myocardial infarction. Because of the fact that she was doing so well, no procedures were done or anticipated. She was admitted back on 09/04/2016. Currently not receiving any IV fluids. Not receiving any supplemental oxygen. She's a selective overflowing to be transferred out of the unit today. Feeling well. No respiratory issues. No hemodynamic issues to speak of. Progress note dated 09/08/2016 66-year-old female with history of being a Church. Apparently came to the hospital with vaginal bleeding was found to be quite anemic. She also presented with what appeared to be in ST segment elevation myocardial infarction. She can be managed medically. This is because of her current mormonism views. Anyway the patient for that out on the floor or may be discharged home today by cardiology. No respiratory issues or hemodynamic issues he very very stable. *Does not need to be here in the ICU. Other than that she is very stable as mentioned above. Objective - Vital Signs Vital signs: Vital Signs Temp 98.3 F 09/08/16 04:00 Pulse 91 09/08/16 04:00 Resp 18 09/08/16 08:00 BP 116/70 09/08/16 04:00 Pulse Ox 99 09/08/16 04:00 Intake & Output 09/07/16 09/08/16 09/08/16 18:59 06:59 18:59 Intake Total 1050 680 Output Total 100 Balance 1050 680 -100 Weight 96 kg 96 kg Intake: Intake, IV Titration 100 200 Amount Magnesium Sulfate-D5w Pmx 200 1 gm In Dextrose/Water 1 100ml.bag @ 100 mls/hr IVPB Q1H [facility] Rx#: [id number] Sodium Ferric Gluconat- 100 Sucrose 125 mg In Sodium Chloride 0.9% 100 ml @ 100 mls/hr IVPB DAILY@ 1600 [facility] Rx#:[id number] Oral 950 480 Output: Urine 100 Other: Voiding Method Toilet Toilet Toilet # Voids 1 1 1 # Bowel Movements 1 1 - Exam No acute distress, oriented 3. HEENT examination is grossly unremarkable. Mucous membranes are moist. No oral lesions. Neck supple. Full range of motion. No adenopathy or thyromegaly. Cardiovascular examination reveals regular rhythm rate. S1 and S2 normal. No S3-S4 or murmur. Lungs are clear breath sounds are equal. No adventitious lung sounds. Abdomen is soft. Extremities are intact. - Labs CBC & Chem 7: 09/08/16 04:13 09/08/16 04:12 Labs: Abnormal Lab Results - Last 24 Hours (Table) 09/08/16 09/08/16 Range/Units 04:12 04:13 WBC 10.7 H (3.8-10.6) k/uL RBC 3.13 L (3.80-5.40) m/uL Hgb 7.1 L (11.4-16.0) gm/dL Hct 25.9 L (34.0-46.0) % MCH 22.7 L (25.0-35.0) pg MCHC 27.5 L (31.0-37.0) g/dL RDW 24.8 H (11.5-15.5) % Neutrophils # 8.3 H (1.3-7.7) k/uL Chloride 111 H (98-107) mmol/L Carbon Dioxide 20 L (22-30) mmol/L Assessment and Plan (1) Anemia Status: Acute (2) Postmenopausal bleeding Status: Acute (3) ST elevation myocardial infarction (STEMI) Status: Acute Plan: Plan The patient's doing well. The patient could be discharged out of the unit. No additional recommendations are made. She needs a bit over and 6 selective. Currently there is a shortage of beds over there. The patient is not receiving any IV fluids. No supplemental oxygen. Alternatively, the patient stable could be discharged home. Plan dated 09/08/2016 The patient's doing well. No additional recommendations are made. She could be discharged out to the floor home. We'll see as needed. Prognosis is guarded. Time with Patient: Less than 30
[2016-09-08 12:18] VITALS: RESP 16
--- NOTE | 2016-09-08 13:20 | P.DS ---
Providers Date of admission: 09/04/16 03:07 Expected date of discharge: 09/08/16 Attending physician: Dax Mcdowell Consults: 09/04/16 03:08 Consult Physician Urgent Consulting Provider: Selina Quan Consult Reason/Comments: STEMI Do you want consulting provider notified?: Already Contacted 09/04/16 03:19 Consult Physician Stat Consulting Provider: Kim Willis Consult Reason/Comments: ICU care Do you want consulting provider notified?: Already Contacted 09/04/16 03:30 Consult Physician Routine Consulting Provider: Thony Huitron Consult Reason/Comments: anemia Do you want consulting provider notified?: Yes, Notify in am 09/04/16 12:57 Consult Physician Routine Consulting Provider: Jessa Monreal Consult Reason/Comments: dysfunctional uterine bleeding with anemia Do you want consulting provider notified?: Yes Primary care physician: Maris Dias Hospital Course: This is a 66-year-old Islam female who presented to the hospital initially with worsening weakness and fatigue. She was found to be significantly anemic with hemoglobin in the low 6 range. She was also found to have significantly elevated troponin with no evidence of acute ischemic changes on 12-lead EKG. She was administered to the intensive care and was managed medically. She refused any blood transfusion. Digital is a list of her medical problems addressed during this hospitalization. 1. Acute non-ST elevated myocardial infarction: Most likely precipitated by supply demand mismatch Patient not a candidate for heart catheterization due to her severe anemia. Seen and evaluated by cardiology, continue medical management. Lipitor lisinopril and metoprolol. Echo showed preserved ejection fraction and no significant wall motion abnormality 2. Dysfunctional uterine bleeding due to uterine fibroids with highly suspected malignancy. Seen and evaluated by gynecology. Patient had tissue sampling last week at an outside hospital was nondiagnostic. She was seen and evaluated by gynecology. She will require a D&C as an outpatient when more stable. Hormonal therapy was discontinued. Patient was counseled about her condition. 3. Acute on chronic blood loss anemia due to uterine bleeding. Patient refuses any blood products. Hemoglobin improving gradually. Patient was given IV Iron during this admission. Hematology has been consulted. to oral iron 3 times a day 4. Former smoker Patient is a Islam. She refused all forms of blood product transfusion. She understands the risks including possibly bleeding to . She will be discharged home in a stable condition. Follow-up with her primary care physician and gynecology as directed. Patient Condition at Discharge: Poor Plan - Discharge Summary New Discharge Prescriptions: Aspirin 81 mg PO DAILY #30 chew Atorvastatin Calcium [Lipitor] 20 mg PO HS #30 tab Metoprolol Tartrate [Lopressor] 25 mg PO BID #60 tab Discharge Medication List Albuterol Inhaler [Ventolin Hfa Inhaler] 1 puff PO RT-Q4H PRN 09/04/16 [History] Ferrous Sulfate [Iron (65 MG Elemental)] 325 mg PO TID 09/04/16 [History] Fluticasone Nasal [place] [Flonase Nasal [place]] 2 sprays EA NOSTRIL DAILY [History] Loratadine [Claritin] 10 mg PO DAILY PRN 09/04/16 [History] Aspirin 81 mg PO DAILY #30 chew 09/08/16 [Rx] Atorvastatin Calcium [Lipitor] 20 mg PO HS #30 tab 09/08/16 [Rx] Metoprolol Tartrate [Lopressor] 25 mg PO BID #60 tab 09/08/16 [Rx] Follow up Appointment(s)/Referral(s): Maris Dias MD [Primary Care Provider] - 3 Days Sarah Troy MD [STAFF PHYSICIAN] - 10 Days Discharge Disposition: HOME SELF-CARE
[2016-09-08] MEDS: DARBEPOETIN ALFA 100MCG/0.5ML SYRINGE SQ SCH (14:59)
[2016-09-08 17:18] VITALS: BP 133/74; PULSE 70; TEMP 98.4
--- NOTE | 2016-09-08 18:31 | PN ---
This patient was admitted with acute myocardial infarction and vaginal bleeding. Patient remains hemodynamically stable. She denies any chest pain or shortness of breath. Patient's blood pressure is 109/68 mmHg. HEART: S1 and S2 normal. Lungs are clear to auscultation and percussion. Patient's hemoglobin is 7.1. This patient did have had a ezh-XK-cdwzfsw-elevation myocardial infarction; a maximum troponin of 7.13 was noted. Discussed the various treatment options with the patient. Patient does need a cardiac catheterization down the road when the bleeding has stopped and stabilized. I also discussed with Dr. Huitron. I recommended to the patient that we wait for about 2 weeks, and if her bleeding has subsided, then we will consider cardiac catheterization. Patient was fully explained that she will be on aspirin and Plavix, and there is an increased risk of bleeding, but we may have to take a chance before she can undergo hysterectomy.
--- NOTE | 2016-09-08 23:58 | P.PN ---
Subjective Principal diagnosis: Severe blood loss anemia due to vaginal bleeding. Acute myocardial infarction The patient's chest pain has resolved. She feels less short of breath. Vaginal bleeding has ceased with the use of hormonal manipulation Objective - Vital Signs Vital signs: Vital Signs Temp 98.4 F 09/08/16 16:00 Pulse 70 09/08/16 16:00 Resp 16 09/08/16 16:00 BP 133/74 09/08/16 16:00 Pulse Ox 100 09/08/16 16:00 Intake & Output 09/08/16 09/08/16 09/09/16 06:59 18:59 06:59 Intake Total 680 40 Output Total 440 Balance 680 -400 Weight 96 kg 96 kg Intake: Intake, IV Titration 200 Amount Magnesium Sulfate-D5w Pmx 200 1 gm In Dextrose/Water 1 100ml.bag @ 100 mls/hr IVPB Q1H [facility] Rx#: [id number] Oral 480 40 Output: Urine 440 Other: Voiding Method Toilet Toilet # Voids 1 1 # Bowel Movements 1 - Constitutional General appearance: Present: no acute distress - EENT Eyes: Present: PERRLA ENT: Present: hearing grossly normal, normal oropharynx - Respiratory Respiratory: bilateral: CTA - Cardiovascular Rhythm: regular Heart sounds: normal: S1, S2 - Gastrointestinal General gastrointestinal: Present: normal bowel sounds, soft - Integumentary Integumentary: Present: normal - Neurologic Neurologic: Present: CNII-XII intact - Musculoskeletal Musculoskeletal: Present: generalized weakness, strength equal bilaterally - Psychiatric Psychiatric: Present: A&O x's 3 - Labs CBC & Chem 7: 09/08/16 04:13 09/08/16 04:12 Labs: Abnormal Lab Results - Last 24 Hours (Table) 09/08/16 09/08/16 Range/Units 04:12 04:13 WBC 10.7 H (3.8-10.6) k/uL RBC 3.13 L (3.80-5.40) m/uL Hgb 7.1 L (11.4-16.0) gm/dL Hct 25.9 L (34.0-46.0) % MCH 22.7 L (25.0-35.0) pg MCHC 27.5 L (31.0-37.0) g/dL RDW 24.8 H (11.5-15.5) % Neutrophils # 8.3 H (1.3-7.7) k/uL Chloride 111 H (98-107) mmol/L Carbon Dioxide 20 L (22-30) mmol/L Assessment and Plan (1) Anemia Narrative/Plan: Her hemoglobin has stabilized, because of cessation of bleeding. The patient has received aggressive supplementation with IV iron, and Aranesp. Treated previously, she is a Mu-ism, and has refuse any blood products. It is too soon for her to have any response to either the IV iron or Aranesp. I would expect the response to start in about 2 weeks, and peak at about 4-5 weeks. This is assuming, that she does not rebleed. She will need follow-up in the outpatient setting in the office with monitoring of her iron stores, and continued IV iron supplementation. Status: Acute (2) ST elevation myocardial infarction (STEMI) Narrative/Plan: The case was discussed with cardiology. The patient needs cardiac catheterization. During the procedure, however, if the patient requires a stent , then she will need to be placed on aspirin and Plavix. This would increase the risk of re bleeding. In my opinion, this risk is acceptable, as without resolution of her cardiac issues, she would not be a candidate for hysterectomy , which is needed to treat the cause of her bleeding (which led to the severe anemia, which in turn likely precipitated the acute myocardial infarction) It was therefore decided that cardiology will likely proceed with the catheterization in about 2 weeks, by which time the patient should be having some response to her IV iron and Aranesp. Hopefully ongoing hormonal manipulation, we will continue to reduce the risk of repeat bleeding, even if the patient needs to be placed on double antiplatelet agent therapy post catheterization. In addition, if her cardiac issues are taken care of, it would be safer to utilize hematologic agents such as Amicar, Sandostatin, or desmopressin, in case the patient does have re-bleeding. Status: Acute (3) Postmenopausal bleeding Narrative/Plan: Once the patient is felt to be stabilized, in regards to her hemoglobin and cardiac issues, surgical treatment for this issue will be planned by gynecology Status: Acute
== END 2016-09-08 19:37 | disposition home or self-care (01) | DRG 811 ==
LOC: EC 02:36 → 6ICU 03:07
PROVIDERS: ADMIT Internal Medicine; ATTEND Internal Medicine
DX: D62 Acute posthemorrhagic anemia (principal); I21.4 Non-ST elevation (NSTEMI) myocardial infarction; D25.9 Leiomyoma of uterus, unspecified; Z66 Do not resuscitate; N85.00 Endometrial hyperplasia, unspecified; N85.2 Hypertrophy of uterus; N95.0 Postmenopausal bleeding; R93.8 Abnormal findings on diagnostic imaging of other specified body structures; R53.1 Weakness; R00.0 Tachycardia, unspecified; N93.8 Other specified abnormal uterine and vaginal bleeding; G47.30 Sleep apnea, unspecified; Z53.1 Procedure and treatment not carried out because of patient's decision for reasons of belief and group pressure; Z79.51 Long term (current) use of inhaled steroids; Z87.891 Personal history of nicotine dependence; Z79.890 Hormone replacement therapy; Z82.49 Family history of ischemic heart disease and other diseases of the circulatory system; Z79.899 Other long term (current) drug therapy; Z88.1 Allergy status to other antibiotic agents
CPT/HCPCS: 36415; 71010; 76830; 80048; 80053; 80061; 81003; 82550; 82553; 83735; 84100; 84484; 85025; 85610; 85730; 87086; 93005; 93306; 94640; 99291